=== PATIENT | female | born 2000 | race Caucasian/White ===

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

== ENCOUNTER 2021-03-24 15:42 | Emergency (ER) | payer MEDICAID, SELFPAY ==
[2021-03-24 15:42] VITALS: BP 118/83; PULSE 113; RESP 24; TEMP 37.1; O2SAT 96; BMI 24.3
[2021-03-24 16:16] LABS: Absolute Lymphocyte Count 3.12 X10^3/uL (0.83-4.51); Absolute Neutrophil Count 10.4 X10^3/uL (2.0-7.7); Basophil# 0.05 X10^3/uL; Basophil% 0.3 % (0-1); Eosinophil# 0.01 X10^3/uL; Eosinophils% 0.1 % (0-5); Hemoglobin 15.4 g/dL (12.0-15.0); Lymphocyte # 3.12 X10^3/ul (0.83-4.51); Lymphocyte % 21.4 % (19-41); Mean Corp Hgb Conc 33.5 g/dL (32-36); Mean Corpuscular Hgb 30.7 pg (27.0-32.0); Mean Corpuscular Volume 91.8 fL (81-99); Mean Platelet Vol. 9.6 fl (6.2-12.0); Monocyte# 1.02 X10^3/uL; NRBC Flagged by Analyzer 0 % (0-5); Neutrophil # 10.37 X10^3/uL (2.7-7.7); Neutrophil % 70.9 % (47-70); Platelet Count 278 K/mm3 (150-450); RBC Distribution Width CV 11.7 % (11.6-14.6); RBC Distribution Width SD 39.5 fl (35.1-43.9); Red Blood Count 5.01 M/mm3 (4.2-5.4); White Blood Count 14.6 K/mm3 (4.4-11.0)
[2021-03-24 16:24] LABS: Internal QC Validated? YES +Cl - CLEAR BKGD; Pregnancy, Serum, hCG Quali. NEGATIVE Negative
[2021-03-24 16:28] LABS: Anion Gap 8 (5-15); BUN 12 mg/dL (7-18); BUN/Creat Ratio 12.1 RATIO (10-20); Calcium,Total 9.8 mg/dL (8.5-10.1); Chloride 106 mmol/L (98-107); Creatinine, Serum 0.99 mg/dL (0.55-1.02); EST Glomerular Filtration Rate 77 mL/min (>60); Est Glom Filt Rate - Afr Amer 93 mL/min (>60); Estimated Creatinine Clearance 78.93 ml/min; Glucose 98 mg/dL (74-106); Potassium 3.9 mmol/L (3.5-5.1); Sodium Level 140 mmol/L (136-145)
--- NOTE | 2021-03-24 16:29 | RAD_ITS ---
STUDY: X-RAY CHEST REASON FOR EXAM: Female, 20 years old. COUGH TECHNIQUE: AP COMPARISON: None. FINDINGS: The lungs are clear and expanded. There is no demonstrated pleural abnormality. Normal size heart. Normal mediastinum and hui. Normal visualized pulmonary arteries. Normal visualized aortic arch and descending thoracic aorta. Normal visualized thoracic spine. Normal visualized ribs, clavicles, and shoulders. There is no demonstrated abnormality of the visualized soft tissue structures of the upper abdomen. RAD/Chest 1 View (Portable) IMPRESSION: Nonacute portable x-ray examination of the chest. Electronically Signed: Sen Maria MD ([place]) at 16:59 EDT , Service support ,
[2021-03-24 16:46] LABS: Alcohol, Blood (Medical)-Serum < 3.0 mg/dL
--- NOTE | 2021-03-24 17:42 | EDS_ITS ---
HPI HPI - Psych History of Present Illness Chief Complaint: Suicidal Detail of Chief Complaint: Depression with suicidal thoughts Informant: patient Onset/Context/Timing Onset: Days Context: Gradual Onset Conflict: Family, Work and Financial Timing: Continuous and Waxes and wanes Current Severity: Mild Maximum Severity: Moderate Worsened by: Situational factors and Alcohol intoxication Associated Symptoms Associated Symptoms - Psych: Positive for Depressed, Change in Eating, Change in sleeping and Suicidal Thoughts; Negative for Decreased Interest, Guilt, Hopelessness, Easily distracted, Grandiosity, Flight of Ideas, Increased activity, Pressured Speech, Agitated, Angry, Hostile, Threatening, Confusion, Paranoia, Visual Hallucinations and Auditory Hallucinations Specific plan (suicidal thought): None Narrative Narrative: Patient is a 20-year-old with history of depression. She is on no an tidepressant. She has had suicidal thoughts. She has no plan or future intent. She has had no prior hospitalization. She is on no antidepressants. She does have history of GERD and iron deficiency. Prior similar symptoms: No Recent Illness/Hospitalization: No PFSH PFSH Medical History (Updated 03/24/21 @ 17:[address] Norman Clark MD) Septate uterus Home Medications ferrous sulfate 140 mg PO DAILY 07/09/20 [History Last Taken Unknown] ondansetron 4 mg PO Q8H PRN #7 tab 12/12/20 [Rx Last Taken Unknown] pantoprazole [Protonix] 20 mg PO DAILY #30 tab 12/12/20 [Rx Last Taken Unknown] Allergy/AdvReac Type Severity Reaction Status Date / Time No Known Allergies Allergy Verified 12/12/20 13:01 Surgical History S/P dilation and curettage Social History (Updated 03/24/21 @ 17:[address] Norman Clark MD) household members: none Smoking Status: Never smoker alcohol intake: never substance use type: does not use ROS ROS ED Constitutional Constitutional ED: Denies chills, fever(s), subjective or sweats Eyes Eyes: Denies blurry vision, change in vision or diplopia ENT ENT ED: Denies ear pain, rhinorrhea or sore throat Cardiovascular Cardiovascular: Denies chest pain, palpitations or racing heartbeat Respiratory/Chest Respiratory/Chest: Denies cough, dyspnea, dyspnea on exertion or sputum Gastrointestinal Gastrointestinal: Denies abdominal pain, nausea or vomiting Genitourinary Genitourinary ED: Denies dysuria, hematuria or urinary frequency Musculoskeletal Musculoskeletal: Denies arthralgias, back pain, myalgias or neck pain Integumentary Denies rash Neurologic Neurologic: Denies headache(s), paresthesias or weakness Psychiatric Psychiatric: Reports depression and suicidal thoughts; Denies suicidal ideation Endocrine Endocrinology: Denies polydipsia, polyphagia or polyuria Hematologic/Lymphatic Hematologic/Lymphatic: Denies easy bleeding or easy bruising EXAM Physical Exam Const Vital Signs: 03/24/21 15:42 Temperature 98.7 F Temperature Source Temporal Pulse Rate 113 H Respiratory Rate 24 H Blood Pressure 118/83 H Blood Pressure Mean 94 Pulse Ox 96 Oxygen Delivery Method Room Air Positive well nourished and well developed General Appearance ED: well developed and NAD; Negative for pallor HEENT normocephalic and atraumatic Eyes PERRL and EOMs intact bilaterally General Eye ED: Negative for pale conjunctiva or scleral icterus Neck no lymphadenopathy and supple Resp normal respiratory effort and clear to auscultation bilaterally Cardio S1 normal heart sound, S2 normal heart sound and no murmurs Rate: regular rate Rhythm: regular rhythm GI non-tender and non-distended Auscultation: normoactive bowel sounds Palpation: soft Back/Spine no CVA tenderness Neuro oriented x3 and CN's II-XII intact bilaterally Sensorium / Orientation: alert Psych cooperative, speech normal, denies hallucinations and denies homicidal ideation Appearance: grossly normal, appropriate and well kempt Attitude: calm Activity / Motor Behavior: appropriate eye contact Speech: normal speech Mood & Affect: depressed Thought Content: normal thought content Attention / Concentration: attention grossly intact Memory / Cognition: memory grossly intact Insight: fair Judgement: fair Skin General Skin Exam: Negative for jaundice or pallor Lesions: no lesions Rashes: no rashes MDM MDM MDM Narrative Medical decision making narrative: Protocol was initiated for depression with suicidal thoughts. After discussion with patient and counselor with no future intent no plan she was contracted for safety. Her work-up is unremarkable other than slightly elevated white count which is nonspecific. Alcohol level is nonexistent test is negative. Chest x-ray was obtained per protocol is unremarkable per my read. Lab Data Labs: Laboratory Results - last 24 hr 03/24/21 03/24/2103/24/21 16:07 16:07 16:07 WBC 14.6 H RBC 5.01 Hgb 15.4 H Hct 46.0 MCV 91.8 MCH 30.7 MCHC 33.5 RDW Std Deviation 39.5 RDW Coeff of Abigail 11.7 Plt Count 278 MPV 9.6 Immature Gran % (Auto) 0.300 Neut % (Auto) 70.9 H Lymph % (Auto) 21.4 [place] % (Auto) 7.0 Eos % (Auto) 0.1 Baso % (Auto) 0.3 Absolute Neuts (auto) 10.4 H Absolute Lymphs (auto) 3.12 Nucleated RBC % 0 Sodium 140 Potassium 3.9 Chloride 106 Carbon Dioxide 26.0 Anion Gap 8 BUN 12 Creatinine 0.99 Estim Creat Clear Calc 78.93 Est GFR (MDRD) Af Amer 93 Est GFR (MDRD) Non-Af 77 BUN/Creatinine Ratio 12.1 Glucose 98 Calcium 9.8 Serum , Qual Ethyl Alcohol < 3.0 03/24/21 16:07 WBC RBC Hgb Hct MCV MCH MCHC RDW Std Deviation RDW Coeff of Abigail Plt Count MPV Immature Gran % (Auto) Neut % (Auto) Lymph % (Auto) [place] % (Auto) Eos % (Auto) Baso % (Auto) Absolute Neuts (auto) Absolute Lymphs (auto) Nucleated RBC % Sodium Potassium Chloride Carbon Dioxide Anion Gap BUN Creatinine Estim Creat Clear Calc Est GFR (MDRD) Af Amer Est GFR (MDRD) Non-Af BUN/Creatinine Ratio Glucose Calcium Serum , Qual NEGATIVE Ethyl Alcohol Radiography Diagnostic Testing: Clinical Impression(s) from Imaging Studies Chest X-Ray 03/24/21 16:29 IMPRESSION: Nonacute portable x-ray examination of the chest. Electronically Signed: Sen Maria MD ([place]) at 16:59 EDT , Service support , Discharge Plan Triage Chief Complaint: Suicidal Other Complaint: Cough ED Provider: Norman Clark Dx/Rx/DC Orders Clinical Impression: Depression, Suicidal thoughts Instructions: ED Depression Prescriptions: No Action ferrous sulfate 140 MG tablet extended release 140 mg PO DAILY RF: 0 ondansetron 4 mg tablet,disintegrating 4 mg PO Q8H PRN (Reason: nausea and vomiting) Qty: 7 RF: 0 pantoprazole [Protonix] 20 mg tablet,delayed release (DR/EC) 20 mg PO DAILY Qty: 30 RF: 0 Primary Care Provider: Toby Aceves Referrals: Toby cAeves MD [Primary Care Provider] - As Needed Activity Restrictions/Additional Instructions: If your thoughts are more intrusive or you are concerned you may act on your suicidal thoughts return to the emergency department. Otherwise follow-up as scheduled by the non licensed nuclear equipment operator that you saw through the counseling center. Disposition Disposition: Home, Self Care
[2021-03-24 18:16] VITALS: O2SAT 96
[2021-03-24 18:19] VITALS: BP 118/83; PULSE 113; RESP 24; TEMP 37.1; O2SAT 96
== END 2021-03-24 18:10 | disposition home or self-care (01) ==
PROVIDERS: Emergency Provider Emergency Medicine; PCP Family Medicine
DX: F32.A Depression, unspecified (principal); R45.851 Suicidal ideations; R05.9 Cough, unspecified; Z20.822 Contact with and (suspected) exposure to COVID-19; E61.1 Iron deficiency; K21.9 Gastro-esophageal reflux disease without esophagitis; Z79.899 Other long term (current) drug therapy
CPT/HCPCS: 36415; 71045; 80048; 82077; 84703; 85025; 87426; 93005; 94760; 99284

== ENCOUNTER 2021-09-01 15:36 | Emergency (ER) | payer MEDICAID, SELFPAY ==
[2021-09-01 15:38] VITALS: BP 116/71; PULSE 86; RESP 18; TEMP 36; O2SAT 96; BMI 25.4
--- NOTE | 2021-09-01 15:49 | CT_ITS ---
EXAM: CT ABDOMEN AND PELVIS WITH INTRAVENOUS CONTRAST : 2000 CLINICAL INDICATION: Abdominal pain TECHNIQUE: Helically acquired images were obtained of the abdomen and pelvis with intravenous contrast. This CT exam was performed using one or more of the following dose reduction techniques: automated exposure control, adjustment of the mA and/or kV according to patient size, and/or use of iterative reconstruction technique. This report was created using [employer] report generation technology. CONTRAST: IV 75mL [id number]-370 COMPARISON: None. FINDINGS: LOWER THORAX: Unremarkable. Lung bases are clear. No cardiomegaly. No significant pericardial effusion. ABDOMEN: LIVER: Unremarkable. Homogeneous. No focal mass. GALLBLADDER AND BILE DUCTS: Unremarkable. No calcified gallstones. No gallbladder distention or wall edema. No intra- or extrahepatic biliary ductal dilation. PANCREAS: Unremarkable. No focal cystic or solid mass. SPLEEN: Unremarkable. Normal size without focal cystic or solid mass. ADRENALS: Unremarkable. No nodules. KIDNEYS AND URETERS: Unremarkable. Normal renal size and position. No hydronephrosis. STOMACH AND BOWEL: Unremarkable. No stomach or bowel distention. No focal inflammatory change. PELVIS: APPENDIX: No evidence of acute appendicitis. BLADDER: Unremarkable. REPRODUCTIVE: Unremarkable as visualized. No mass. ABDOMEN and PELVIS: INTRAPERITONEAL SPACE: There is a mild amount of free fluid in the pelvis. No free air. BONES/JOINTS: Unremarkable. No suspicious lytic or blastic abnormality. SOFT TISSUES: Unremarkable. No discrete abdominal or pelvic wall hernia. VASCULATURE: Unremarkable. Abdominal aorta is non-dilated. LYMPH NODES: Unremarkable. No enlarged lymph nodes. CT/Abdomen/Pelvis W IV Cont ONLY IMPRESSION: No acute findings in the abdomen or pelvis. Individualized dose optimization techniques were used for this CT. at 1801 Reported and signed by: Vipul Dawkins MD Electronically Signed: Vipul Dawkins MD at 18:00 EDT ,
--- NOTE | 2021-09-01 16:00 | EDS_ITS ---
HPI <EDI Jack - Last Filed: 09/01/21 18:29> History of Present Illness Chief Complaint: Nausea/Vomiting/Diarrhea Narrative Narrative: 20-year-old female with no significant medical history presents to the emergency department with 3 days of nausea, vomiting, diarrhea, abdominal pain. Patient states got so bad last night that she had to go to the emergency department at [facility], she states she got IV fluids and was sent home with Phenergan. Patient states she continues to have nausea vomiting cannot keep water down. Patient is here for reevaluation. She denies any fevers or chills, patient states she does use marijuana however is very rare. Patient denies any blood in stool, states there is some redness in her vomit. Patient states that she feels dehydrated and is here for reevaluation. PFSH <EDI Jack - Last Filed: 09/01/21 18:29> [facility] Medical History (Updated 09/01/21 @ 18:28 by EDI Jack) Septate uterus Home Medications ferrous sulfate 140 mg PO DAILY 07/09/20 [History Last Taken Unknown] ondansetron 4 mg PO Q8H PRN #7 tab 12/12/20 [Rx Last Taken Unknown] medroxyprogesterone 150 mg/mL intramuscular suspension 150 mg IM [id number] #1 ml 08/28/21 [Rx Last Taken Unknown] metoclopramide HCl [Reglan] 10 mg PO Q6H PRN #10 tab 09/01/21 [Rx Last Taken Unknown] Allergy/AdvReac Type Severity Reaction Status Date / Time No Known Allergies Allergy Verified 09/01/21 15:37 Surgical History S/P dilation and curettage Social History (Updated 08/28/21 @ 14:37 by Carla Clark) household members: family and none current occupational status: employed current occupation: [employer] Smoking Status: Never smoker alcohol intake: never substance use type: does not use what type of physical activity do you participate in: none seatbelt use: always do you feel safe at home: Yes additional social history: single ROS <EDI Jack - Last Filed: 09/01/21 18:29> ROS ED ROS Narrative Constitutional: Negative for fever, chills, weight loss or gain, weakness Eyes: Negative for vision loss, vision change, double vision ENT: Negative for any hearing changes, ringing in the ears, discharge, pain Nose: Negative for any congestion, runny nose, sinus pain, allergies Throat: Negative for any sore throat, swelling, voice changes, Cardiovascular: Negative for any chest pain, tightness, palpitations, racing heartbeat Respiratory: Negative for any cough, sputum production, hemoptysis, shortness of breath, shortness of breath on exertion, Gastrointestinal: Negative for any constipation, blood in stool, blood in vomit. Positive for abdominal pain, nausea and vomiting, diarrhea : Negative for any urinary frequency, incontinence, dysuria, retention, blood in urine Muscle skeletal: Negative for any muscle joint pain, stiffness, myalgias, arthralgias, neck pain, back pain Neurological: Negative for any headache, dizziness, syncope, numbness or tingling Skin: Negative for any rashes, lumps, itching, abrasions, lacerations Psychiatric: Negative for any depression, anxiety, stress, suicidal ideation, homicidal ideation Hematologic: Negative for any easy bruising, excessive bruising, easy bleeding Allergies: Negative for any eczema, hives, rash EXAM <EDI Jack - Last Filed: 09/01/21 18:29> Physical Exam Const Vital Signs: 09/01/21 15:38 09/01/21 18:09 09/01/21 19:05 Temperature 96.8 F L Temperature Source Temporal Pulse Rate 86 74 Respiratory Rate 18 16 17 Blood Pressure 116/71 112/71 Blood Pressure Mean 86 Pulse Ox 96 97 Oxygen Delivery Method Room Air Positive well nourished and well developed General Appearance ED: well developed HEENT Negative for trauma or tenderness Eyes PERRL and EOMs intact bilaterally Neck no lymphadenopathy and supple Chest Wall inspection of chest normal and palpation of chest normal Resp normal respiratory effort and clear to auscultation bilaterally Cardio regular rate, regular rhythm and no murmurs GI non-distended and no masses; Negative for non-tender GI Narrative: Patient is tenderness to lower abdomen Auscultation: normoactive bowel sounds Palpation: soft and tender Back/Spine no CVA tenderness Extremity normal to inspection Neuro oriented x3 and CN's II-XII intact bilaterally Sensorium / Orientation: alert Motor Exam: strength 5/5 throughout Psych mental status grossly normal Skin no rashes or lesions noted <Dr. Joslyn Buenrostro MD - Last Filed: 09/01/21 19:18> Physical Exam Const Vital Signs: 09/01/21 15:38 09/01/21 18:09 09/01/21 19:05 Temperature 96.8 F L Temperature Source Temporal Pulse Rate 86 74 Respiratory Rate 18 16 17 Blood Pressure 116/71 112/71 Blood Pressure Mean 86 Pulse Ox 96 97 Oxygen Delivery Method Room Air [facility] <Franck IvaEDI hudson - Last Filed: 09/01/21 18:29> [facility] Narrative Medical decision making narrative: Patient appears well, patient appears nontoxic, vital signs are stable. Patient presents to the emergency department for ongoing nausea and vomiting and abdominal pain. Patient did receive a full abdominal work-up. Patient CBC was unremarkable, chemistries were unremarkable patient had no anion gap. Patient's urinalysis showed no infection however did have 150 of ketones out this is concerning for dehydration. Patient's urinalysis showed no infection. Patient is not . Patient initially received Zofran, Bentyl as well as 1 L of fluid. Patient did have worsening nausea and vomiting here, patient was then given Reglan 10 mg as well as Benadryl as well as another liter of fluid. Patient is now resting a position of comfort is drinking by mouth fluids. Patient did receive a CT of the abdomen pelvis which showed no acute findings. At this time, the patient will be diagnosed with gastroenteritis, dehydration. There is no indication of any bowel obstruction, diverticulitis, appendicitis. Patient will follow up outpatient and advance her diet as tolerated. Patient stable for discharge Lab Data Attestation: I reviewed the patient's lab results. Labs: Laboratory Results - last 24 hr 09/01/21 09/01/21 09/01/21 16:06 16:06 16:39 WBC 8.1 RBC 4.51 Hgb 13.8 Hct 40.3 MCV 89.4 MCH 30.6 MCHC 34.2 RDW Std Deviation 37.9 RDW Coeff of Abigail 11.8 Plt Count 246 MPV 10.1 Immature Gran % (Auto) 0.400 Neut % (Auto) 65.2 Lymph % (Auto) 25.7 [place] % (Auto) 8.3 Eos % (Auto) 0.0 Baso % (Auto) 0.4 Absolute Neuts (auto) 5.3 Absolute Lymphs (auto) 2.07 Nucleated RBC % 0 Sodium 137 Potassium 3.8 Chloride 106 Carbon Dioxide 24.0 Anion Gap 7 BUN 14 Creatinine 0.79 Estim Creat Clear Calc 94.75 Est GFR (MDRD) Af Amer 120 Est GFR (MDRD) Non-Af 99 BUN/Creatinine Ratio 17.7 Glucose 95 Calcium 9.0 Total Bilirubin 0.70 AST 11 L ALT 16 Alkaline Phosphatase 58 Total Protein 7.5 Albumin 3.7 Globulin 3.8 Albumin/Globulin Ratio 1.0 Lipase 57 L Serum , Qual NEGATIVE Urine Color Urine Clarity Urine pH Ur Specific [place] Urine Protein Urine Glucose (UA) Urine Ketones Urine Occult Blood Urine Nitrite Urine Bilirubin Urine Urobilinogen Ur Leukocyte Esterase Urine RBC Urine WBC Ur Squamous Epith Cells Urine Bacteria Urine Mucus Urine Test 09/01/21 17:38 WBC RBC Hgb Hct MCV MCH MCHC RDW Std Deviation RDW Coeff of Abigail Plt Count MPV Immature Gran % (Auto) Neut % (Auto) Lymph % (Auto) [place] % (Auto) Eos % (Auto) Baso % (Auto) Absolute Neuts (auto) Absolute Lymphs (auto) Nucleated RBC % Sodium Potassium Chloride Carbon Dioxide Anion Gap BUN Creatinine Estim Creat Clear Calc Est GFR (MDRD) Af Amer Est GFR (MDRD) Non-Af BUN/Creatinine Ratio Glucose Calcium Total Bilirubin AST ALT Alkaline Phosphatase Total Protein Albumin Globulin Albumin/Globulin Ratio Lipase Serum , Qual Urine Color Yellow Urine Clarity Clear Urine pH 6.5 Ur Specific [place] 1.015 Urine Protein 30 H Urine Glucose (UA) Normal Urine Ketones 150 A* Urine Occult Blood Negative Urine Nitrite Negative Urine Bilirubin Negative Urine Urobilinogen 1 H Ur Leukocyte Esterase 25 H Urine RBC 0-5 SEEN Urine WBC 0-5 SEEN Ur Squamous Epith Cells 0-5 SEEN Urine Bacteria 0 SEEN Urine Mucus 1+ Urine Test Cancelled Radiography Diagnostic Testing: Clinical Impression(s) from Imaging Studies Abdomen/Pelvis CT 09/01/21 15:49 IMPRESSION: No acute findings in the abdomen or pelvis. Individualized dose optimization techniques were used for this CT. at 1801 Reported and signed by: Vipul Dawkins MD Electronically Signed: Vipul Dawkins MD at 18:00 EDT , <Dr. Joslyn Buenrostro MD - Last Filed: 09/01/21 19:18> [facility] Lab Data Labs: Laboratory Results - last 24 hr 09/01/21 09/01/21 09/01/21 16:06 16:06 16:39 WBC 8.1 RBC 4.51 Hgb 13.8 Hct 40.3 MCV 89.4 MCH 30.6 MCHC 34.2 RDW Std Deviation 37.9 RDW Coeff of Abigail 11.8 Plt Count 246 MPV 10.1 Immature Gran % (Auto) 0.400 Neut % (Auto) 65.2 Lymph % (Auto) 25.7 [place] % (Auto) 8.3 Eos % (Auto) 0.0 Baso % (Auto) 0.4 Absolute Neuts (auto) 5.3 Absolute Lymphs (auto) 2.07 Nucleated RBC % 0 Sodium 137 Potassium 3.8 Chloride 106 Carbon Dioxide 24.0 Anion Gap 7 BUN 14 Creatinine 0.79 Estim Creat Clear Calc 94.75 Est GFR (MDRD) Af Amer 120 Est GFR (MDRD) Non-Af 99 BUN/Creatinine Ratio 17.7 Glucose 95 Calcium 9.0 Total Bilirubin 0.70 AST 11 L ALT 16 Alkaline Phosphatase 58 Total Protein 7.5 Albumin 3.7 Globulin 3.8 Albumin/Globulin Ratio 1.0 Lipase 57 L Serum , Qual NEGATIVE Urine Color Urine Clarity Urine pH Ur Specific [place] Urine Protein Urine Glucose (UA) Urine Ketones Urine Occult Blood Urine Nitrite Urine Bilirubin Urine Urobilinogen Ur Leukocyte Esterase Urine RBC Urine WBC Ur Squamous Epith Cells Urine Bacteria Urine Mucus Urine Test 09/01/21 17:38 WBC RBC Hgb Hct MCV MCH MCHC RDW Std Deviation RDW Coeff of Abigail Plt Count MPV Immature Gran % (Auto) Neut % (Auto) Lymph % (Auto) [place] % (Auto) Eos % (Auto) Baso % (Auto) Absolute Neuts (auto) Absolute Lymphs (auto) Nucleated RBC % Sodium Potassium Chloride Carbon Dioxide Anion Gap BUN Creatinine Estim Creat Clear Calc Est GFR (MDRD) Af Amer Est GFR (MDRD) Non-Af BUN/Creatinine Ratio Glucose Calcium Total Bilirubin AST ALT Alkaline Phosphatase Total Protein Albumin Globulin Albumin/Globulin Ratio Lipase Serum , Qual Urine Color Yellow Urine Clarity Clear Urine pH 6.5 Ur Specific [place] 1.015 Urine Protein 30 H Urine Glucose (UA) Normal Urine Ketones 150 A* Urine Occult Blood Negative Urine Nitrite Negative Urine Bilirubin Negative Urine Urobilinogen 1 H Ur Leukocyte Esterase 25 H Urine RBC 0-5 SEEN Urine WBC 0-5 SEEN Ur Squamous Epith Cells 0-5 SEEN Urine Bacteria 0 SEEN Urine Mucus 1+ Urine Test Cancelled Radiography Diagnostic Testing: Clinical Impression(s) from Imaging Studies Abdomen/Pelvis CT 09/01/21 15:49 IMPRESSION: No acute findings in the abdomen or pelvis. Individualized dose optimization techniques were used for this CT. at 1801 Reported and signed by: Vipul Dawkins MD Electronically Signed: Vipul Dawkins MD at 18:00 EDT , Treatment and Re-Evaluation Narrative: Patient seen and evaluated with WENDY. I personally interviewed and examined the patient. I was involved in all aspects of patient's orders, interpretation of results, and treatment. Patient presents secondary to couple day history of nausea, vomiting, diarrhea with abdominal pain. She points to both the epigastrium as well as suprapubic area describing her area of pain. She was reportedly seen at [facility] last night and discharged with Phenergan. She also has Zofran at home. She states in spite of this medication she was unable to keep anything down today. Patient lying in bed no acute distress. She is nontoxic-appearing. Head and neck examination unremarkable. Heart is regular rate and rhythm. Lung sounds are clear. Abdomen is soft with no significant tenderness on palpation. No guarding or rebound. Patient given Bentyl, Zofran, Toradol, IV fluids. Lab work, urinalysis, CT flank obtained. Lab work is unremarkable and test is negative. Urinalysis reveals no acute infection. She does have 150 ketones. Patient had some dry heaves following initial round of medication. She was given Reglan and Benadryl. She will be given a total of 2 L of IV fluid and discharged home with prescription for omeprazole and Reglan. Return instructions provided. Discharge Plan Triage Chief Complaint: Nausea/Vomiting/Diarrhea ED Midlevel Provider: Franck Plasencia ED Provider: Joslyn Buenrostro Dx/Rx/DC Orders Clinical Impression: Gastroenteritis, Acute dehydration Instructions: ED Dehydration (Adult), ED Gastritis (Adult) Prescriptions: New metoclopramide HCl [Reglan] 10 mg tablet 10 mg PO Q6H PRN (Reason: nausea and vomiting) Qty: 10 RF: 0 No Action medroxyprogesterone [Depo-Provera] 150 mg/mL suspension 150 mg IM [id number] Qty: 1 RF: 1 ferrous sulfate 140 MG tablet extended release 140 mg PO DAILY RF: 0 ondansetron 4 mg tablet,disintegrating 4 mg PO Q8H PRN (Reason: nausea and vomiting) Qty: 7 RF: 0 Primary Care Provider: Toby Aceves Referrals: Toby Aceves MD [Primary Care Provider] - Activity Restrictions/Additional Instructions: Please advance her diet as tolerated, clear liquids then solid foods. Please use Reglan as needed. Print Language: Syriac Disposition Disposition: Home, Self Care Discharge Date/Time: 09/01/21 19:12
[2021-09-01] MEDS: Ondansetron 4 MG/2 ML Vial IV (16:03)
[2021-09-01] MEDS: Ketorolac 15 MG/ML Vial IV (16:03)
[2021-09-01] MEDS: 0.9% Normal Saline 1,000 ML 1000 ML IV (16:03)
[2021-09-01] MEDS: Dicyclomine 20 MG/2 ML Vial IM (16:04)
[2021-09-01 16:13] LABS: Absolute Lymphocyte Count 2.07 X10^3/uL (0.83-4.51); Absolute Neutrophil Count 5.3 X10^3/uL (2.0-7.7); Basophil# 0.03 X10^3/uL; Basophil% 0.4 % (0-1); Hematocrit 40.3 % (37-47); Hemoglobin 13.8 g/dL (12.0-15.0); Lymphocyte # 2.07 X10^3/ul (0.83-4.51); Lymphocyte % 25.7 % (19-41); Mean Corp Hgb Conc 34.2 g/dL (32-36); Mean Corpuscular Hgb 30.6 pg (27.0-32.0); Mean Corpuscular Volume 89.4 fL (81-99); Mean Platelet Vol. 10.1 fl (6.2-12.0); Monocyte# 0.67 X10^3/uL; Monocyte% 8.3 % (0-10); NRBC Flagged by Analyzer 0 % (0-5); Neutrophil # 5.25 X10^3/uL (2.7-7.7); Neutrophil % 65.2 % (47-70); Platelet Count 246 K/mm3 (150-450); RBC Distribution Width CV 11.8 % (11.6-14.6); RBC Distribution Width SD 37.9 fl (35.1-43.9); Red Blood Count 4.51 M/mm3 (4.2-5.4); White Blood Count 8.1 K/mm3 (4.4-11.0)
[2021-09-01 16:29] LABS: AST(SGOT) 11 U/L (15-37); Alanine Aminotransfer ALT/SGPT 16 U/L (13-56); Albumin, Serum 3.7 g/dL (3.2-5.0); Alkaline Phosphatase 58 U/L (45-117); Anion Gap 7 (5-15); BUN 14 mg/dL (7-18); BUN/Creat Ratio 17.7 RATIO (10-20); Chloride 106 mmol/L (98-107); Creatinine, Serum 0.79 mg/dL (0.55-1.02); EST Glomerular Filtration Rate 99 mL/min (>60); Est Glom Filt Rate - Afr Amer 120 mL/min (>60); Estimated Creatinine Clearance 94.75 ml/min; Globulin 3.8 g/dL (2.2-4.2); Glucose 95 mg/dL (74-106); Lipase 57 U/L (73-393); Potassium 3.8 mmol/L (3.5-5.1); Protein, Total 7.5 g/dL (6.4-8.2); Sodium Level 137 mmol/L (136-145)
[2021-09-01 17:01] LABS: Internal QC Validated? YES +Cl - CLEAR BKGD; Pregnancy, Serum, hCG Quali. NEGATIVE Negative
[2021-09-01] MEDS: DiphenhydrAMINE 50 MG/ML Syringe 25 MG IV (17:23)
[2021-09-01] MEDS: Metoclopramide 10 MG/2 ML Vial IV (17:23)
[2021-09-01 17:43] LABS: Bacteria 0 SEEN /hpf (None Seen)
[2021-09-01 17:47] LABS: Color, Urine Yellow (Yellow); Glucose, Dipstick Normal (Normal); Leukocyte Esterase-Dipstick 25 /ul (Negative); Nitrite-Dipstick Negative (Negative); Occult Blood-Urine Negative /ul (Negative); Protein-Dipstick 30 mg/dl (Negative); Specific Gravity, Urine 1.015 (1.002-1.030); Urine Bilirubin Dipstick Negative (Negative); Urine Clarity Clear (Clear); Urine Urobilinogen 1 mg/dl (Normal); Urine pH 6.5 (5.0 - 8.0)
[2021-09-01 17:51] LABS: Ketone-Dipstick 150 mg/dl (Negative)
[2021-09-01 18:04] LABS: Red Blood Cells-Urine 0-5 SEEN /hpf (0-5); White Blood Cells 0-5 SEEN /hpf (0-5)
[2021-09-01 18:05] LABS: Mucous, Urine 1+ /hpf (<or=2+); Squamous Epithelial Cells - UA 0-5 SEEN /hpf (5-10)
[2021-09-01 18:09] VITALS: RESP 16
[2021-09-01] MEDS: 0.9% Normal Saline 1,000 ML 999 ML IV (18:11)
[2021-09-01 19:05] VITALS: BP 112/71; PULSE 74; RESP 17; O2SAT 97
== END 2021-09-01 19:12 | disposition home or self-care (01) ==
PROVIDERS: Nurse Practitioner; Emergency Provider Emergency Medicine; PCP Family Medicine; Visit Provider Emergency Medicine
DX: K52.9 Noninfective gastroenteritis and colitis, unspecified (principal); E86.0 Dehydration
CPT/HCPCS: 74177; 80053; 81001; 83690; 84703; 85025; 96361; 96374; 96375; 99283; J7030; Q9967; A4216; J2405

== ENCOUNTER 2021-09-02 09:23 | Emergency (ER) | payer MEDICAID, SELFPAY ==
[2021-09-02 09:24] VITALS: BP 111/67; PULSE 63; RESP 18; TEMP 36.2; O2SAT 100; BMI 25.7
--- NOTE | 2021-09-02 09:45 | EDS_ITS ---
HPI HPI - GI History of Present Illness Chief Complaint: Nausea/Vomiting/Diarrhea Informant: patient Abdominal Pain/Flank Pain Onset: Days Context: Gradual Onset Timing: Continuous Quality: Aching Location: Diffuse Current Severity: Mild Maximum Severity: Mild Worsened by: Nothing Relieved by: Nothing Nausea/Vomiting/Emesis GI Symptom: Positive for Nausea and Vomiting Onset: Days Severity: Moderate Diarrhea/Melena/Hematochezia GI Symptom: Positive for Diarrhea; Negative for Melena and Hematochezia Onset: Days Stool Quality: Positive for Watery Severity: Mild Associated Symptoms Associated Symptoms: Negative for Dysuria, Frequency, Hematuria and Urgency Narrative Narrative: 20-year-old female no seen past medical history. No prior abdominal surgeries. Presents with a 3-day history of nausea vomiting and diarrhea. She denies any fever. No dysuria. She is actually seen in the emergency department in the last 48 hours. Had a negative work-up at that time including CBC, chemistry, liver enzymes and lipase. Also negative UA and test. States she is having continued nausea vomiting and diarrhea. Prior similar symptoms: Yes Recent Illness/Hospitalization: No PFSH PFSH Medical History (Updated 09/02/21 @ 10:[address] Francisco Arora MD) Septate uterus Home Medications ferrous sulfate 140 mg PO DAILY 07/09/20 [History Last Taken Unknown] ondansetron 4 mg PO Q8H PRN #7 tab 12/12/20 [Rx Last Taken Unknown] medroxyprogesterone 150 mg/mL intramuscular suspension 150 mg IM [id number] #1 ml 08/28/21 [Rx Last Taken Unknown] metoclopramide HCl [Reglan] 10 mg PO Q6H PRN #10 tab 09/01/21 [Rx Last Taken Unknown] Allergy/AdvReac Type Severity Reaction Status Date / Time No Known Allergies Allergy Verified 09/01/21 15:37 Surgical History S/P dilation and curettage Social History household members: family and none current occupational status: employed current occupation: [employer] Smoking Status: Never smoker alcohol intake: never substance use type: does not use what type of physical activity do you participate in: none seatbelt use: always do you feel safe at home: Yes additional social history: single ROS ROS ED ROS Narrative Nausea, vomiting, diarrhea and abdominal pain. Review of Systems ROS Unobtainable: Denies due to encephalopathy Constitutional Constitutional ED: Denies fever(s) ENT ENT ED: Denies ear pain Cardiovascular Cardiovascular: Denies chest pain Respiratory/Chest Respiratory/Chest: Denies cough or dyspnea Gastrointestinal Gastrointestinal: Reports abdominal pain, diarrhea, nausea and vomiting; Denies constipation or melena Genitourinary Genitourinary ED: Denies dysuria or hematuria Musculoskeletal Musculoskeletal: Denies myalgias Integumentary Denies rash Neurologic Neurologic: Denies headache(s) Psychiatric Psychiatric: Denies depression Endocrine Endocrinology: Denies polyuria Hematologic/Lymphatic Hematologic/Lymphatic: Denies easy bruising Allergic/Immunologic Allergic/Immunologic ED: Denies urticaria EXAM Physical Exam Narrative Exam Narrative: Well-appearing 20-year-old female. Vital signs stable afebrile. Blood pressure 111/67. Pulse 63. She does not look septic or toxic. She does not look dehydrated. H EENT exam unremarkable. Moist use membranes. Lungs clear to auscultation. Heart regular rhythm rate about 60 no murmur. Abdomen soft nondistended normal bowel sounds no peritoneal signs. Complains of tenderness but she has a benign abdomen. It is not localizing is diffuse. There is no hernia or mass. There is no obstruction. Moving all 4 extremities. Nontender no edema. Neurologic exam normal. Const Vital Signs: 09/02/21 09:24 Temperature 97.2 F L Temperature Source Temporal Pulse Rate 63 Respiratory Rate 18 Blood Pressure 111/67 Blood Pressure Mean 81 Pulse Ox 100 Oxygen Delivery Method Room Air Positive well nourished and well developed; Negative for obese, cachectic or contractures General Appearance ED: well developed; Negative for cachectic, contractures or pallor Nutritional Appearance: Negative for cachectic or obese HEENT Reports moist mucous membranes normocephalic; Negative for atraumatic or trauma Eyes PERRL and EOMs intact bilaterally Neck no lymphadenopathy, supple and no JVD General: Negative for tenderness Resp normal respiratory effort and clear to auscultation bilaterally Auscultation: Negative for rales, rhonchi or wheezes Cardio regular rate, regular rhythm, S1 normal heart sound, S2 normal heart sound and no murmurs GI non-distended and no masses; Negative for non-tender Inspection: Negative for abdominal distention Auscultation: normoactive bowel sounds; Negative for hyperactive bowel sounds or hypoactive bowel sounds Palpation: soft and tender; Negative for guarding, rigid, hepatomegaly, splenomegaly, hernia, mass, pulsatile mass or rebound tenderness present Back/Spine no CVA tenderness General Back: Negative for CVA tenderness Cervical Spine: Negative for cervical spine tenderness Thoracic Spine / Upper Back: Negative for thoracic spinal tenderness Extremity full ROM General Extremety ED: Negative for edema or tenderness General Extremity: Negative for edema Neuro moves all extremities Sensorium / Orientation: alert, oriented to person, oriented to place and oriented to time; Negative for orientation impaired, confused, lethargic or stuporous Motor Exam: strength 5/5 throughout Psych mental status grossly normal and thought process normal Skin no wounds General Skin Exam: Negative for jaundice or pallor Lesions: no lesions Rashes: no rashes MDM MDM MDM Narrative Medical decision making narrative: 20-year-old female history and exam are consistent with a viral gastroenteritis. She had a significant work-up in his emergency department in the last 24 hours. Test were unremarkable at that time. She will be treated with IV fluids and Zofran and reassess. Repeat exam at 11 AM patient is doing well. She was given a Sprite to drink has been able to keep that down. Abdomen is benign. Again rechecked at 11:53 AM and she is doing well she will be discharged to home. She is a prescription for nausea medication which she received on a prior emergency department visit. Discharge Plan Triage Chief Complaint: Nausea/Vomiting/Diarrhea ED Provider: Francisco Arora Dx/Rx/DC Orders Clinical Impression: Gastroenteritis Instructions: ED Gastroenteritis, Viral (Adult) Prescriptions: No Action medroxyprogesterone [Depo-Provera] 150 mg/mL suspension 150 mg IM [id number] Qty: 1 RF: 1 ferrous sulfate 140 MG tablet extended release 140 mg PO DAILY RF: 0 ondansetron 4 mg tablet,disintegrating 4 mg PO Q8H PRN (Reason: nausea and vomiting) Qty: 7 RF: 0 metoclopramide HCl [Reglan] 10 mg tablet 10 mg PO Q6H PRN (Reason: nausea and vomiting) Qty: 10 RF: 0 Primary Care Provider: Toby Aceves Referrals: Toby Aceves MD [Primary Care Provider] - 3-5 Days if not improving Activity Restrictions/Additional Instructions: Plenty of fluids and rest. [place] diet increase slowly as tolerated. Start with liquids then p.o. then soups and increase from there. Zofran as needed for nausea which you may let dissolve under your tongue or swallow it to prevent you from vomiting. Follow-up with your doctor if not improving. Disposition Disposition: Home, Self Care
[2021-09-02] MEDS: Ketorolac 30 MG/ML Syringe IV (10:11)
[2021-09-02] MEDS: 0.9% Normal Saline 1,000 ML 1000 ML IV (10:11)
[2021-09-02] MEDS: Ondansetron 4 MG/2 ML Vial IV (10:11)
[2021-09-02 12:00] VITALS: BP 124/63; PULSE 59; RESP 16; O2SAT 98
== END 2021-09-02 12:01 | disposition home or self-care (01) ==
PROVIDERS: Emergency Provider Emergency Medicine; PCP Family Medicine; Visit Provider Emergency Medicine
DX: K52.9 Noninfective gastroenteritis and colitis, unspecified (principal); Z79.899 Other long term (current) drug therapy
CPT/HCPCS: 96361; 96374; 96375; 99283; J7030; A4216; J2405

== ENCOUNTER 2021-09-05 11:56 | Emergency (ER) | payer MEDICAID, SELFPAY ==
[2021-09-05 11:56] VITALS: BP 107/77; BP 110/66; PULSE 63; PULSE 76; RESP 14; RESP 16; TEMP 36.9; TEMP 37.1; O2SAT 97; O2SAT 99; BMI 24.0
--- NOTE | 2021-09-05 12:19 | EDS_ITS ---
HPI HPI - GI History of Present Illness Chief Complaint: Nausea/Vomiting Informant: patient and parent Abdominal Pain/Flank Pain Onset: Weeks Context: Gradual Onset Timing: Intermittent Nausea/Vomiting/Emesis GI Symptom: Positive for Nausea and Vomiting Severity: Moderate Diarrhea/Melena/Hematochezia GI Symptom: Negative for Diarrhea, Melena and Hematochezia Associated Symptoms Associated Symptoms: Negative for Dysuria, Frequency and Hematuria Narrative Narrative: 20-year-old female no significant past medical history. Only surgery was a D&C. She has had intermittent nausea vomiting for last 2 weeks. She has had multiple ER evaluations. She had negative labs including a CBC, CMP, lipase, urinalysis and test. She has both Phenergan and Zofran at home. States she has recurrent nausea and vomiting. She does admit to using cannabis recreationally. But says she has not used it for last couple weeks. Prior similar symptoms: Yes Recent Illness/Hospitalization: No PFSH PFSH Medical History (Updated 09/05/21 @ 12:[address] Francisco Arora MD) Septate uterus Home Medications ferrous sulfate 140 mg PO DAILY 07/09/20 [History Last Taken Unknown] ondansetron 4 mg PO Q8H PRN #7 tab 12/12/20 [Rx Last Taken Unknown] medroxyprogesterone 150 mg/mL intramuscular suspension 150 mg IM [id number] #1 ml 08/28/21 [Rx Last Taken Unknown] metoclopramide HCl [Reglan] 10 mg PO Q6H PRN #10 tab 09/01/21 [Rx Last Taken Unknown] Allergy/AdvReac Type Severity Reaction Status Date / Time No Known Allergies Allergy Verified 09/05/21 11:58 Family History no significant family his Surgical History S/P dilation and curettage Social History household members: family and none current occupational status: employed current occupation: [employer] Smoking Status: Never smoker alcohol intake: never substance use type: does not use and marijuana what type of physical activity do you participate in: none seatbelt use: always do you feel safe at home: Yes additional social history: single ROS ROS ED ROS Narrative Nausea and vomiting. Review of Systems ROS Unobtainable: Denies due to encephalopathy Constitutional Constitutional ED: Denies fever(s) ENT ENT ED: Denies ear pain Cardiovascular Cardiovascular: Denies chest pain Respiratory/Chest Respiratory/Chest: Denies dyspnea Gastrointestinal Gastrointestinal: Reports abdominal pain, nausea and vomiting; Denies constipation or melena Genitourinary Genitourinary ED: Denies dysuria Musculoskeletal Musculoskeletal: Denies myalgias Integumentary Denies rash Neurologic Neurologic: Denies headache(s) Psychiatric Psychiatric: Denies depression Endocrine Endocrinology: Denies polyuria Hematologic/Lymphatic Hematologic/Lymphatic: Denies easy bruising Allergic/Immunologic Allergic/Immunologic ED: Denies urticaria EXAM Physical Exam Narrative Exam Narrative: -year-old female no acute distress. Vital signs stable afebrile. Initial blood pressure 107/77. Her pulse rate 76. She does not look septic or toxic. She is in no distress. Mom is at bedside. H EENT exam unremarkable. Moist use membranes. Neck nontender no lymphadenopathy. Lungs clear to auscultation. Heart regular rate and rhythm. Abdomen soft nondistended normal bowel sounds no peritoneal signs. No right upper or right lower quadrant tenderness. No hernia or mass no obstruction. Moving all 4 extremities. No edema. Neurologically she is awake and alert with no focal motor deficits. I did examine the patient on at least one other visit and there is no change. Const Vital Signs: 09/05/21 11:56 Temperature 98.4 F Temperature Source Temporal Pulse Rate 76 Respiratory Rate 16 Blood Pressure 107/77 Blood Pressure Mean 87 Pulse Ox 99 Oxygen Delivery Method Room Air Positive well nourished and well developed; Negative for obese, cachectic, contractures or unkempt General Appearance ED: well developed and NAD; Negative for unkempt, cachectic, contractures or pallor Nutritional Appearance: Negative for cachectic or obese HEENT Reports moist mucous membranes normocephalic and atraumatic Eyes PERRL and EOMs intact bilaterally General Eye ED: Negative for pale conjunctiva or scleral icterus Neck no lymphadenopathy, supple and no JVD General: Negative for tenderness Resp normal respiratory effort and clear to auscultation bilaterally Auscultation: Negative for rales, rhonchi or wheezes Cardio regular rate, regular rhythm, S1 normal heart sound, S2 normal heart sound and no murmurs GI non-tender, non-distended and no masses Inspection: Negative for abdominal distention Auscultation: normoactive bowel sounds Palpation: soft; Negative for tender, guarding, rigid or rebound tenderness present Back/Spine no CVA tenderness General Back: Negative for CVA tenderness Cervical Spine: Negative for cervical spine tenderness Thoracic Spine / Upper Back: Negative for thoracic spinal tenderness Extremity full ROM General Extremety ED: Negative for edema or tenderness General Extremity: Negative for edema Neuro CN's II-XII intact bilaterally and moves all extremities Sensorium / Orientation: alert, oriented to person, oriented to place and oriented to time; Negative for orientation impaired, confused, lethargic or stuporous Motor Exam: strength 5/5 throughout Psych mental status grossly normal and thought process normal Appearance: Negative for unkempt Skin no wounds General Skin Exam: Negative for jaundice or pallor Lesions: no lesions Rashes: no rashes MDM MDM MDM Narrative Medical decision making narrative: Patient with intermittent nausea and vomiting for last 2 weeks. Her exam is benign. Her prior work-ups been negative. She needs no imaging. I discussed both with the patient and her mom.. There is no other test to really do at this time. I did offer to start an IV and give the medications that way. She has 2 different nausea medications at home. Mom messages today. Injection of nausea medication and she will follow up with a primary care physician. We did discuss the possibility of this being related to recreational marijuana use also. Discharge Plan Triage Chief Complaint: Nausea/Vomiting ED Provider: Francisco Arora Dx/Rx/DC Orders Clinical Impression: Nausea & vomiting Instructions: ED Vomiting (Adult) Prescriptions: No Action medroxyprogesterone [Depo-Provera] 150 mg/mL suspension 150 mg IM [id number] Qty: 1 RF: 1 ferrous sulfate 140 MG tablet extended release 140 mg PO DAILY RF: 0 ondansetron 4 mg tablet,disintegrating 4 mg PO Q8H PRN (Reason: nausea and vomiting) Qty: 7 RF: 0 metoclopramide HCl [Reglan] 10 mg tablet 10 mg PO Q6H PRN (Reason: nausea and vomiting) Qty: 10 RF: 0 Primary Care Provider: Toby Aceves Referrals: Toby Aceves MD [Primary Care Provider] - As soon as possible Activity Restrictions/Additional Instructions: Plenty of fluids and rest. Use your home nausea medications both Zofran and/or the Phenergan. Call and follow-up with your primary care physician. Disposition Disposition: Home, Self Care
[2021-09-05] MEDS: proCHLORPERazine 10 MG/2 ML Vial IM (12:53)
[2021-09-05 13:26] VITALS: BP 100/51; PULSE 65; O2SAT 99
[2021-09-05 14:27] VITALS: BP 124/69; PULSE 72; RESP 15; O2SAT 98
== END 2021-09-05 14:29 | disposition home or self-care (01) ==
LOC: ED 12:27
PROVIDERS: Emergency Provider Emergency Medicine; PCP Family Medicine; Visit Provider Emergency Medicine
DX: R11.2 Nausea with vomiting, unspecified (principal); R10.9 Unspecified abdominal pain; Z79.899 Other long term (current) drug therapy
CPT/HCPCS: 96372; 99283

== ENCOUNTER 2021-09-07 14:31 | Outpatient (CLI) | payer MEDICAID, SELFPAY ==
[2021-09-07 15:24] LABS: Internal QC Validated? YES +Cl - CLEAR BKGD; Pregnancy, Serum, hCG Quali. NEGATIVE Negative
== END 2021-09-07 23:59 | disposition home or self-care (01) ==
PROVIDERS: PCP Family Medicine; Referring Provider Obstetrics & Gynecology; Visit Provider Obstetrics & Gynecology
DX: Z30.9 Encounter for contraceptive management, unspecified (principal)
CPT/HCPCS: 36415; 84703

== ENCOUNTER 2021-11-21 01:24 | Emergency (ER) | payer MEDICAID, SELFPAY ==
[2021-11-21 01:25] VITALS: BP 124/90; PULSE 60; RESP 18; TEMP 36.4; O2SAT 100; BMI 24.0
--- NOTE | 2021-11-21 01:41 | EX.ED.DYSGE1 ---
HPI History of Present Illness Chief Complaint: Nausea/Vomiting Informant: patient Narrative Narrative: Patient's been having nausea vomiting and some diarrhea that started about 4 days ago. She states the diarrhea is now better. No blood in the stool. She states she has not been able to get anything at all to eat or drink. She has vomited a little bit of blood once or twice but not routinely. She states her stomach is sore all over but no one area is tender or painful. She has had many episodes of this in the past with no known diagnosis. She has been seen in the emergency department for some of these episodes. She does have a history of marijuana use. It is not known if this is the origin of her symptoms. She has not had fevers or chills. She does not know anyone who is sick. No travel. She is on no medicines. No intra-abdominal surgeries other than D&C. No known COVID exposure. No cough. No myalgias. Nothing really makes her symptoms better. Anything she tries to eat or drink makes them worse. Patient also really wants the blood pressure cuff off of her arm. She states it just bothers her. [facility] Medical History (Updated 11/21/21 @ 05:[address] Tristin Valle MD) Septate uterus Home Medications ondansetron 4 mg disintegrating tablet 4 mg PO Q8H PRN nausea and vomiting #10 tabs 11/21/21 [Rx Last Taken Unknown] promethazine 25 mg rectal suppository (Promethegan) 25 mg RECTAL Q6H PRN PRN Nausea ##6 11/21/21 [Rx Last Taken Unknown] Allergy/AdvReac Type Severity Reaction Status Date / Time No Known Allergies Allergy Verified 11/21/21 01:28 Surgical History S/P dilation and curettage Social History household members: family and none current occupational status: employed current occupation: [employer] Smoking Status: Never smoker alcohol intake: never substance use type: does not use and marijuana what type of physical activity do you participate in: none seatbelt use: always do you feel safe at home: Yes additional social history: single ROS ROS ED Constitutional Constitutional ED: Denies chills or fever(s) Eyes Eyes: Denies change in vision ENT ENT ED: Denies rhinorrhea or sore throat Cardiovascular Cardiovascular: Denies chest pain or palpitations Respiratory/Chest Respiratory/Chest: Denies cough or dyspnea Gastrointestinal Gastrointestinal: Reports abdominal pain, diarrhea, nausea and vomiting; Denies constipation or melena Genitourinary Genitourinary ED: Reports other Details: No change in urine output. ; Denies dysuria or hematuria Musculoskeletal Musculoskeletal: Denies arthralgias Integumentary Denies Abrasions Neurologic Neurologic: Denies headache(s) Endocrine Endocrinology: Denies cold intolerance or heat intolerance Allergic/Immunologic Allergic/Immunologic ED: Denies mouth swelling EXAM Physical Exam Const Vital Signs: 11/21/21 01:25 11/21/21 04:52 11/21/21 06:00 Temperature 97.6 F L Temperature Source Temporal Pulse Rate 60 74 70 Respiratory Rate 18 17 Blood Pressure 124/90 H 132/74 H 122/74 H Blood Pressure Mean 101 93 90 Pulse Ox 100 98 99 Oxygen Delivery Method Room Air Room Air Room Air Positive well nourished and well developed General Appearance ED: well developed and NAD; Negative for cyanotic HEENT Reports moist mucous membranes HEENT Narrative: Mucous membranes are still surprisingly moist considering her history. Eyes PERRL and EOMs intact bilaterally General Eye ED: Negative for scleral icterus Neck no lymphadenopathy Resp normal respiratory effort and clear to auscultation bilaterally Cardio regular rate Rate: other Other Details: Despite her history, her heart rate is about 65 and very normal and regular. ; Negative for tachycardic GI normal to inspection, nondistended, normoactive bowel sounds, non-tender and non-distended GI Narrative: Bowel sounds sound normal. They are not increased or decreased. Abdomen is overall thin and benign. Back/Spine no CVA tenderness Extremity normal to inspection General Extremety ED: Negative for edema or tenderness General Extremity: Negative for edema Neuro oriented x3 Psych mental status grossly normal Skin no rashes or lesions noted MDM MDM MDM Narrative Medical decision making narrative: GlobinPatient's blood work showed slight rise of her white count. She has had this before. A little bit high. Electrolytes show no marked abnormalities. Minimal abnormalities of sodium and potassium. Creatinine is barely above normal. BUN to creatinine ratio is less than 20. Liver function test are normal. Lipase is normal. is negative. Patient was given IV fluids here. She has gone to the restroom multiple times. But each time she states she cannot go. There is some concern if she may be going in flushing because there is flushing that is heard. But we cannot verify this. Patient did drink 2 glasses of water. She did well. She ate crackers. She stated she threw those up but she went to the bathroom again to do that and we could not verify it. Patient is very nontoxic in appearance. Her heart rate is normal. Her mucous membranes are moist. Her abdomen is benign. I will get her some more meds and watch her here longer. Patient did have a CAT scan back in August of this year. I really do not want to repeat this as she has a long history of abdominal pain nausea and vomiting with mostly nausea vomiting being the issue. We will try to control her symptoms. Patient again asked for removal of the blood pressure cuff because it was just too irritating and pinching for her to tolerate. I did remove this to help. Patient has been observed here. She has drank fluids. She is holding them down. Phenergan seem to work better for her. I will still send her home with both Phenergan and Zofran so she has options. Lab Data Attestation: I reviewed the patient's lab results. Labs: Laboratory Results - last 24 hr 11/21/21 11/21/21 11/21/21 01:30 01:30 01:30 WBC 15.6 H RBC 5.14 Hgb 15.8 H Hct 45.3 MCV 88.1 MCH 30.7 MCHC 34.9 RDW Std Deviation 37.5 RDW Coeff of Abigail 11.8 Plt Count 292 MPV 10.3 Immature Gran % (Auto) 0.400 Neut % (Auto) 72.2 H Lymph % (Auto) 18.6 L Stanley % (Auto) 8.4 Eos % (Auto) 0.1 Baso % (Auto) 0.3 Absolute Neuts (auto) 11.3 H Absolute Lymphs (auto) 2.90 Nucleated RBC % 0 Sodium 134 L Potassium 3.4 L Chloride 97 L Carbon Dioxide 24.0 Anion Gap 13 BUN 19 H Creatinine 1.05 H Estim Creat Clear Calc 74.42 Est GFR (MDRD) Af Amer 86 Est GFR (MDRD) Non-Af 71 BUN/Creatinine Ratio 18.1 Glucose 92 Calcium 10.1 Total Bilirubin 1.10 H AST 14 L ALT 16 Alkaline Phosphatase 59 Total Protein 8.3 H Albumin 4.7 Globulin 3.6 Albumin/Globulin Ratio 1.3 Lipase 57 L Serum , Qual NEGATIVE Discharge Plan Triage Chief Complaint: Nausea/Vomiting ED Provider: Tristin Valle Dx/Rx/DC Orders Clinical Impression: Nausea & vomiting Instructions: ED Vomiting (Adult) Prescriptions: New promethazine [Promethegan] 25 mg suppository 25 mg RECTAL Q6H PRN PRN (Reason: Nausea) Qty: 6 0RF ondansetron 4 mg tablet,disintegrating 4 mg PO Q8H PRN (Reason: nausea and vomiting) Qty: 10 0RF Primary Care Provider: Toby Aceves Referrals: Toby Aceves MD [Primary Care Provider] - 3-5 Days Disposition Disposition: Home, Self Care Discharge Date/Time: 11/21/21 06:18
[2021-11-21 01:47] LABS: Absolute Neutrophil Count 11.3 X10^3/uL (2.0-7.7); Basophil# 0.05 X10^3/uL; Basophil% 0.3 % (0-1); Eosinophil# 0.01 X10^3/uL; Eosinophils% 0.1 % (0-5); Hematocrit 45.3 % (37-47); Hemoglobin 15.8 g/dL (12.0-15.0); Lymphocyte % 18.6 % (19-41); Mean Corp Hgb Conc 34.9 g/dL (32-36); Mean Corpuscular Hgb 30.7 pg (27.0-32.0); Mean Corpuscular Volume 88.1 fL (81-99); Mean Platelet Vol. 10.3 fl (6.2-12.0); Monocyte# 1.31 X10^3/uL; Monocyte% 8.4 % (0-10); NRBC Flagged by Analyzer 0 % (0-5); Neutrophil # 11.25 X10^3/uL (2.7-7.7); Neutrophil % 72.2 % (47-70); Platelet Count 292 K/mm3 (150-450); RBC Distribution Width CV 11.8 % (11.6-14.6); RBC Distribution Width SD 37.5 fl (35.1-43.9); Red Blood Count 5.14 M/mm3 (4.2-5.4); White Blood Count 15.6 K/mm3 (4.4-11.0)
[2021-11-21] MEDS: Ondansetron 4 MG/2 ML Vial IV (01:48)
[2021-11-21] MEDS: 0.9% Normal Saline 1,000 ML 1000 ML IV ×2 (01:48→03:20)
[2021-11-21 01:53] LABS: Internal QC Validated? YES +Cl - CLEAR BKGD; Pregnancy, Serum, hCG Quali. NEGATIVE Negative
[2021-11-21 02:03] LABS: ALB/GLOB Ratio 1.3 RATIO (0.9-2.4); AST(SGOT) 14 U/L (15-37); Alanine Aminotransfer ALT/SGPT 16 U/L (13-56); Albumin, Serum 4.7 g/dL (3.2-5.0); Alkaline Phosphatase 59 U/L (45-117); Anion Gap 13 (5-15); BUN 19 mg/dL (7-18); BUN/Creat Ratio 18.1 RATIO (10-20); Calcium,Total 10.1 mg/dL (8.5-10.1); Chloride 97 mmol/L (98-107); Creatinine, Serum 1.05 mg/dL (0.55-1.02); EST Glomerular Filtration Rate 71 mL/min (>60); Est Glom Filt Rate - Afr Amer 86 mL/min (>60); Estimated Creatinine Clearance 74.42 ml/min; Globulin 3.6 g/dL (2.2-4.2); Glucose 92 mg/dL (74-106); Lipase 57 U/L (73-393); Potassium 3.4 mmol/L (3.5-5.1); Protein, Total 8.3 g/dL (6.4-8.2); Sodium Level 134 mmol/L (136-145)
[2021-11-21 04:52] VITALS: BP 132/74; PULSE 74; RESP 17; O2SAT 98
[2021-11-21] MEDS: proMETHazine 25 MG/ML Syringe 12.5 MG IM (05:11)
[2021-11-21] MEDS: Dicyclomine 20 MG/2 ML Vial IM (05:11)
[2021-11-21 06:00] VITALS: BP 122/74; PULSE 70; O2SAT 99
== END 2021-11-21 06:18 | disposition home or self-care (01) ==
PROVIDERS: Emergency Provider Emergency Medicine; PCP Family Medicine; Visit Provider Emergency Medicine
DX: R11.2 Nausea with vomiting, unspecified (principal); R19.7 Diarrhea, unspecified; R10.9 Unspecified abdominal pain
CPT/HCPCS: 80053; 83690; 84703; 85025; 99282; J7030; A4216; J2405

== ENCOUNTER 2021-11-22 20:36 | Emergency (ER) | payer MEDICAID, SELFPAY ==
[2021-11-22 20:36] VITALS: BP 120/85; PULSE 77; RESP 18; TEMP 36.8; O2SAT 98; BMI 26.5
--- NOTE | 2021-11-22 21:24 | EDS_ITS ---
HPI History of Present Illness Chief Complaint: General Illness Detail of Chief Complaint: Nausea and vomiting. Informant: patient and parent Onset/Context/Timing Onset: Month(s) Context: Gradual Onset Timing: Intermittent Current Severity: Mild Maximum Severity: Mild Narrative Narrative: 89-year-old female no seen past medical history. Prior surgery she had a D&C. She had intermittent nausea and vomiting for the last several months. She had extensive laboratory work-up which all been neg ative. And even a CAT scan of abdomen pelvis in August which was completely normal. She had nausea vomiting since Friday. Decreased p.o. intake. Says her throat feels sore from vomiting. Her last menstrual period was 3 weeks ago. She has had recent negative test. She does have a history of marijuana use and she and I discussed that in the past that could be causing vomiting. Mom states the patient said her whole body got numb tonight. Mom states I want answers. Prior similar symptoms: Yes Recent Illness/Hospitalization: No PFSH PFSH Medical History (Updated 11/22/21 @ 22:[address] Francisco Arora MD) Septate uterus Home Medications ondansetron 4 mg disintegrating tablet 4 mg PO Q8H PRN nausea and vomiting #10 tabs 11/21/21 [Rx Last Taken Unknown] promethazine 25 mg rectal suppository (Promethegan) 25 mg RECTAL Q6H PRN PRN Nausea ##6 11/21/21 [Rx Last Taken Unknown] Allergy/AdvReac Type Severity Reaction Status Date / Time No Known Allergies Allergy Verified 11/22/21 20:39 Surgical History S/P dilation and curettage Social History household members: family and none current occupational status: employed current occupation: [employer] Smoking Status: Never smoker alcohol intake: never substance use type: does not use and marijuana what type of physical activity do you participate in: none seatbelt use: always do you feel safe at home: Yes additional social history: single ROS ROS ED ROS Narrative Nausea and vomiting. Review of Systems ROS Unobtainable: Denies due to encephalopathy Constitutional Constitutional ED: Denies chills Eyes Eyes: Denies blurry vision ENT ENT ED: Denies ear pain Cardiovascular Cardiovascular: Denies chest pain Respiratory/Chest Respiratory/Chest: Denies cough Gastrointestinal Gastrointestinal: Reports abdominal pain, nausea and vomiting; Denies constipation, diarrhea or melena Genitourinary Genitourinary ED: Denies dysuria or hematuria Integumentary Denies abscess Neurologic Neurologic: Denies headache(s) Psychiatric Psychiatric: Reports anxiety Endocrine Endocrinology: Denies cold intolerance Allergic/Immunologic Allergic/Immunologic ED: Denies mouth swelling EXAM Physical Exam Narrative Exam Narrative: 89-year-old female anxious. Vital signs are stable afebrile. Blood pressure 120/85. Temperature 98.3. Pulse ox 98%. H EENT exam normal. Posterior pharynx is normal. There is no redness or swelling. No trouble swallowing. No stridor. Moist weeks membranes. Neck nontender no lymphadenopathy. Lungs clear to auscultation. Heart regular rhythm no murmur. Abdomen soft nondistended normal bowel sounds no peritoneal signs. Moving all 4 extremities. Calves nontender. Back nontender. Neurologically she is awake alert with no focal motor deficits. Const Vital Signs: 11/22/21 20:36 Temperature 98.3 F Temperature Source Temporal Pulse Rate 77 Respiratory Rate 18 Blood Pressure 120/85 H Blood Pressure Mean 96 Pulse Ox 98 Oxygen Delivery Method Room Air Positive well nourished and well developed; Negative for obese, cachectic, contractures or unkempt General Appearance ED: well developed; Negative for unkempt, cachectic, contractures or pallor Nutritional Appearance: Negative for cachectic or obese HEENT Reports moist mucous membranes Negative for trauma Eyes PERRL and EOMs intact bilaterally General Eye ED: Negative for pale conjunctiva or scleral icterus Neck no lymphadenopathy, supple and no JVD Lymph Lymphatic: Negative for other Chest Wall inspection of chest normal and palpation of chest normal Resp normal respiratory effort and clear to auscultation bilaterally Effort and Inspection: Negative for retractions Auscultation: Negative for rales, rhonchi or wheezes Cardio regular rate, regular rhythm, S1 normal heart sound, S2 normal heart sound and no murmurs Palpation: Negative for palpable S3 Rate: Negative for bradycardia Rhythm: Negative for abnormal rhythm GI normal to inspection, nondistended, normoactive bowel sounds, non-tender, non- distended, hepatosplenomegaly and no masses Inspection: Negative for abdominal distention Auscultation: normoactive bowel sounds Palpation: soft; Negative for tender, guarding, splenomegaly or mass Back/Spine no CVA tenderness General Back: Negative for CVA tenderness Cervical Spine: Negative for cervical spine tenderness Thoracic Spine / Upper Back: Negative for thoracic spinal tenderness Lumbar Spine / Lower Back: Negative for lumbar spinal tenderness Extremity normal to inspection General Extremety ED: Negative for edema or tenderness General Extremity: Negative for edema Neuro oriented x3 Sensorium / Orientation: alert; Negative for orientation impaired, lethargic or stuporous Motor Exam: strength 5/5 throughout; Negative for general weakness Psych mental status grossly normal Appearance: Negative for unkempt Skin no rashes or lesions noted and no wounds General Skin Exam: Negative for jaundice or pallor Rashes: No rashes noted Trauma: Negative for abrasion Wounds: Negative for wounds noted MDM MDM MDM Narrative Medical decision making narrative: 20-year-old with recurrent nausea and vomiting the last several months. This very well may be cannabis induced nausea and vomiting. Should be treated with IV fluids and IV Zofran. Mom requested she get something for pain. She will be given Toradol. And Protonix for epigastric discomfort. She has had a CAT scan in the last several months and was completely normal. I do not think lab work will be of any assistance she has had a multiple times each of which has been negative. Exam is normal. Repeat exam patient is doing well at 10:32 PM. I went over the test results with her and her mom. I explained to him that I thought this was secondary to anxiety and her cannabis use. I went over the test that she has had over the last year and the CAT scan she had in August. Mom stated they were going to ask her to have further evaluation and no driving up there tonight. Currently the patient clinically looks well. Lab Data Attestation: I reviewed the patient's lab results. Lab results narrative: CMP unremarkable. Potassium at 3.4 was the same yesterday. BUN and creatinine are normal at 15 and 0.89 and actually improved from yesterday. Her gap is normal at 13. Liver enzymes are unremarkable. Labs: Laboratory Results - last 24 hr 11/22/21 21:25 Sodium 137 Potassium 3.4 L Chloride 101 Carbon Dioxide 23.0 Anion Gap 13 BUN 15 Creatinine 0.89 Estim Creat Clear Calc 80.41 Est GFR (MDRD) Af Amer 105 Est GFR (MDRD) Non-Af 87 BUN/Creatinine Ratio 16.9 Glucose 81 Calcium 9.0 Total Bilirubin 0.90 AST 13 L ALT 15 Alkaline Phosphatase 49 Total Protein 7.2 Albumin 4.2 Globulin 3.0 Albumin/Globulin Ratio 1.4 Discharge Plan Triage Chief Complaint: General Illness ED Provider: Francisco Arora Dx/Rx/DC Orders Clinical Impression: Nausea & vomiting, Anxiety Instructions: ED Anxiety Reaction, ED Vomiting (Adult) Prescriptions: No Action promethazine [Promethegan] 25 mg suppository 25 mg RECTAL Q6H PRN PRN (Reason: Nausea) Qty: 6 0RF ondansetron 4 mg tablet,disintegrating 4 mg PO Q8H PRN (Reason: nausea and vomiting) Qty: 10 0RF Primary Care Provider: Toby Aceves Referrals: Toby Aceves MD [Primary Care Provider] - 3-5 Days if not improving Activity Restrictions/Additional Instructions: Plenty of fluids and rest. Follow-up with your primary care physician. Zofran as needed for nausea. Disposition Disposition: Home, Self Care
[2021-11-22] MEDS: Ketorolac 30 MG/ML Syringe IV (21:36)
[2021-11-22] MEDS: LORazepam 2 MG/ML Syringe 1 MG IV (21:36)
[2021-11-22] MEDS: Ondansetron 4 MG/2 ML Vial IV (21:36)
[2021-11-22 22:05] LABS: ALB/GLOB Ratio 1.4 RATIO (0.9-2.4); AST(SGOT) 13 U/L (15-37); Alanine Aminotransfer ALT/SGPT 15 U/L (13-56); Albumin, Serum 4.2 g/dL (3.2-5.0); Alkaline Phosphatase 49 U/L (45-117); Anion Gap 13 (5-15); BUN 15 mg/dL (7-18); BUN/Creat Ratio 16.9 RATIO (10-20); Chloride 101 mmol/L (98-107); Creatinine, Serum 0.89 mg/dL (0.55-1.02); EST Glomerular Filtration Rate 87 mL/min (>60); Est Glom Filt Rate - Afr Amer 105 mL/min (>60); Estimated Creatinine Clearance 80.41 ml/min; Glucose 81 mg/dL (74-106); Potassium 3.4 mmol/L (3.5-5.1); Protein, Total 7.2 g/dL (6.4-8.2); Sodium Level 137 mmol/L (136-145)
--- NOTE | 2021-11-22 22:39 | ED.RN ---
PATIENT SEEN WALKING TO EXIT WITH HER MOTHER BEFORE DISCHARGE PAPERWORK AVAILABLE.
== END 2021-11-22 22:44 | disposition home or self-care (01) ==
PROVIDERS: Emergency Provider Emergency Medicine; PCP Family Medicine; Visit Provider Emergency Medicine
DX: R11.2 Nausea with vomiting, unspecified (principal); R10.13 Epigastric pain; F41.9 Anxiety disorder, unspecified; F12.90 Cannabis use, unspecified, uncomplicated
CPT/HCPCS: 80053; 96365; 96375; 99282; A4216; J2405

== ENCOUNTER 2022-04-22 14:28 | Emergency (ER) | payer MEDICAID, SELFPAY ==
[2022-04-22 14:30] VITALS: BP 119/74; PULSE 68; RESP 22; TEMP 36.6; O2SAT 100; BMI 26.0
== END 2022-04-22 17:45 | disposition left against medical advice (07) ==
LOC: ED 18:46
PROVIDERS: PCP Family Medicine
DX: R11.2 Nausea with vomiting, unspecified (principal); R42 Dizziness and giddiness; Z53.21 Procedure and treatment not carried out due to patient leaving prior to being seen by health care provider

== ENCOUNTER → 2022-06-12 | Outpatient (CLI) | payer MEDICAID, SELFPAY ==
[2022-06-12 12:11] LABS: Internal QC Validated? YES +Cl - CLEAR BKGD
[2022-06-12 12:13] LABS: Pregnancy, Serum, hCG Quali. NEGATIVE Negative
[2022-06-12 20:23] LABS: Chlamydia Trachomatis by PCR Negative (Negative); Neisserai gonorrhoeae by PCR Negative (Negative); Probe Check PASS; Sample Adequacy Control PASS; Specimen Processing Control PASS
== END | disposition home or self-care (01) ==
PROVIDERS: PCP Family Medicine; Referring Provider Nurse Practitioner Women's Health; Visit Provider Nurse Practitioner Women's Health
DX: N92.6 Irregular menstruation, unspecified (principal); Z11.3 Encounter for screening for infections with a predominantly sexual mode of transmission
CPT/HCPCS: 36415; 84703; 87491; 87591

== ENCOUNTER 2023-02-03 15:16 | Emergency (ER) | payer MEDICAID, SELFPAY ==
[2023-02-03 15:18] VITALS: BP 119/76; PULSE 107; RESP 20; TEMP 36.3; O2SAT 100; BMI 29.7
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
[2023-02-03] MEDS: Morphine 4 MG/ML Syringe IV (15:45)
[2023-02-03] MEDS: Ondansetron 4 MG/2 ML Vial IV (15:45)
[2023-02-03] MEDS: 0.9% Normal Saline 1,000 ML 150 ML IV (15:50)
[2023-02-03 15:51] LABS: Absolute Lymphocyte Count 2.95 X10^3/uL (0.83-4.51); Absolute Neutrophil Count 5.6 X10^3/uL (2.0-7.7); Basophil# 0.04 X10^3/uL; Basophil% 0.4 % (0-1); Eosinophil# 0.04 X10^3/uL; Eosinophils% 0.4 % (0-5); Hematocrit 41.9 % (37-47); Lymphocyte # 2.95 X10^3/ul (0.83-4.51); Lymphocyte % 31.4 % (19-41); Mean Corp Hgb Conc 33.4 g/dL (32-36); Mean Corpuscular Hgb 30.6 pg (27.0-32.0); Mean Corpuscular Volume 91.5 fL (81-99); Mean Platelet Vol. 9.9 fl (6.2-12.0); Monocyte# 0.72 X10^3/uL; Monocyte% 7.7 % (0-10); NRBC Flagged by Analyzer 0 % (0-5); Neutrophil # 5.63 X10^3/uL (2.7-7.7); Neutrophil % 59.9 % (47-70); Platelet Count 263 K/mm3 (150-450); RBC Distribution Width CV 11.8 % (11.6-14.6); RBC Distribution Width SD 39.7 fl (35.1-43.9); Red Blood Count 4.58 M/mm3 (4.2-5.4); White Blood Count 9.4 K/mm3 (4.4-11.0)
[2023-02-03 16:05] LABS: Internal QC Validated? YES +Cl - CLEAR BKGD; Pregnancy, Serum, hCG Quali. NEGATIVE Negative; Record Kit Lot#, Serum Preg. 667200
[2023-02-03 16:10] LABS: Anion Gap 4 (5-15); BUN 13 mg/dL (7-18); BUN/Creat Ratio 15.2 RATIO (10-20); Calcium,Total 8.9 mg/dL (8.5-10.1); Chloride 107 mmol/L (98-107); Creatinine, Serum 0.85 mg/dL (0.55-1.02); EST Glomerular Filtration Rate 89 mL/min (>60); Est Glom Filt Rate - Afr Amer 108 mL/min (>60); Estimated Creatinine Clearance 90.41 ml/min; Glucose 90 mg/dL (74-106); Potassium 3.8 mmol/L (3.5-5.1); Sodium Level 138 mmol/L (136-145)
[2023-02-03 17:39] LABS: Color, Urine Yellow (Yellow); Glucose, Dipstick Normal (Normal); Ketone-Dipstick Negative (Negative); Leukocyte Esterase-Dipstick 25 /ul (Negative); Mucous, Urine 0 SEEN /hpf (<or=2+); Nitrite-Dipstick Negative (Negative); Occult Blood-Urine 250 /ul (Negative); Protein-Dipstick 15 mg/dl (Negative); Urine Bilirubin Dipstick Negative (Negative); Urine Clarity Clear (Clear); Urine Urobilinogen Normal (Normal)
[2023-02-03 17:46] LABS: Bacteria 1+ /hpf (None Seen); Red Blood Cells-Urine 5-10 SEEN /hpf (0-5); Squamous Epithelial Cells - UA 5-10 SEEN /hpf (5-10); White Blood Cells 5-10 SEEN /hpf (0-5)
== END 2023-02-03 18:40 | disposition home or self-care (01) ==
PROVIDERS: Emergency Provider Emergency Medicine; PCP Family Medicine; Visit Provider Emergency Medicine
DX: N93.9 Abnormal uterine and vaginal bleeding, unspecified (principal)
CPT/HCPCS: 74177; 80048; 81001; 84703; 85025; 96361; 96374; 96375; 99282; J7030; Q9967; A4216; J2405

== ENCOUNTER 2023-05-30 15:21 | Emergency (ER) | payer MEDICAID, SELFPAY ==
[2023-05-30 15:22] VITALS: BP 122/94; PULSE 76; RESP 14; TEMP 36.6; O2SAT 100; BMI 30.2
--- NOTE | 2023-05-30 15:26 | EX.ED.DYSGE1 ---
HPI History of Present Illness Chief Complaint: Abd Pain [facility] Medical History Septate uterus Home Medications medroxyprogesterone 150 mg/mL intramuscular suspension (Depo-Provera) 150 mg IM [id number] #1 mL 06/12/22 [Rx Last Taken Unknown] Allergy/AdvReac Type Severity Reaction Status Date / Time No Known Allergies Allergy Verified 05/30/23 15:22 Surgical History S/P dilation and curettage Social History household members: family and none current occupational status: employed current occupation: [employer] Smoking Status: Never smoker alcohol intake: never substance use type: does not use and marijuana what type of physical activity do you participate in: none seatbelt use: always do you feel safe at home: Yes additional social history: single EXAM Physical Exam Const Vital Signs: 05/30/23 15:22 Temperature 98 F Temperature Source Temporal Pulse Rate 76 Respiratory Rate 14 Blood Pressure 122/94 H Blood Pressure Mean 103 Pulse Ox 100 Oxygen Delivery Method Room Air MDM MDM MDM Narrative Medical decision making narrative: HISTORY OF PRESENT ILLNESS: 22year old male presents with abdominal pain. Notes associated nausea vomiting for past 3 days. She further states abdominal pain is everywhere . Began 3 days ago has been intermittent with no alleviating exacerbating features. Denies hematochezia, melena , bilious emesis. Denies history of abdominal surgeries notes history of dilation curettage. Denies fever. REVIEW OF SYSTEMS: All other systems reviewed and are negative except as noted in the history of present illness. At least 10 review of systems reviewed and are negative except as noted in history of present illness. PHYSICAL EXAM: Nursing triage notes reviewed, Vital signs reviewed Constitutional: please see mdm HENT: MMM Eyes: Pupils equal round and reactive to light, Extraocular muscles intact Neck: No stridor, no JVD, full neck ROM Lungs: Clear to auscultation, No wheezing or rales. No increased work of breathing, no conversational dyspnea, no accessory muscle use, no nasal flaring. No respiratory distress noted Heart: Regular rate and rhythm, No murmurs, No rubs and No gallops, 2+ distal pulses (radial, femoral, posterior tibial) in all extremities Abdomen: Soft, no rigidity, rebound or guarding, no obvious peritoneal signs, no palpable pulsatile abdominal masses, no auscultated abdominal bruit : No CVAT Extremities: No edema Neuro: No focal neurological deficits, cranial nerves II through XII intact, 5/5 strength in all extremities. Intact sensation to light touch in all extremities, 2+ reflexes bilateral patella tendons. Normal gait. No ataxia. Skin: No rash or lesions noted MEDICAL DECISION MAKING: Chief Complaint: abdominal pain External records reviewed: prior ED records reviewed: Last ED visit in January 2023. Imaging studies reviewed: CT scan abdomen pelvis from January 2023 shows no definitive acute or significant abnormality Factors affecting care: History of abnormal uterine bleeding Social determinants of health:none History obtained from others: none Consults: none ALL IMAGES (IF OBTAINED) HAVE BEEN PERSONALLY REVIEWED AND INTERPRETED BY MYSELF. EKG with sinus bradycardia, normal axis, normal intervals, no STEMI, no prolongation of QT interval, T wave inversion noted in 3 which was present prior EKG from March 2021 CBC without leukocytosis, severe anemia, no thrombocytopenia. CMP without evidence of acute kidney injury, significant electrolyte abnormality, anion gap, no evidence hepatobiliary pathology. Urinalysis shows no evidence of urinary inflammation suggestive of UTI Urine test is negative Lipase is wnl indicating no pancreatic inflammation. The synthesis of the patient's history, physical exam labs suggest no acute life-limiting intra-abdominal pathology. I suspect the patient is suffering from cannabinol hyperemesis syndrome given report of decreased marijuana use secondary to nausea vomiting. She is initially given Reglan which reduce side effect of acute dystonic reaction was treated with Benadryl. She was then given haloperidol. Patient reported improved symptoms. She was then discharged with p.o. Zofran to take as needed instructions to discontinue smoking marijuana permanently. MDM Narrative: The patient was hemodynamically stable, afebrile, nontoxic-appearing. Abdominal exam was benign not consistent with acute surgical process. No indication for advanced imaging of the abdomen pelvis at this time. I obtained a broad lab workup to further assess the patient's etiology to assure there is no signs of hepatobiliary obstruction, significant systemic inflammation, pancreatitis, , UTI, significant dehydration or electrolyte disturbances. I considered the following differential diagnosis: AAA, small bowel obstruction, abdominal perforation, appendicitis, pancreatitis, hepatobiliary pathology (acute cholecystitis), mesenteric ischemia, abnormalities such as pyelonephritis, nephrolithiasis I see nothing that would suggest an acute abdomen at this time. Based on history physical exam, risk factors, I have a low for bowel obstruction, incarcerated hernia, acute pancreatitis, intra-abdominal abscess, perforated viscus, diverticulitis, cholecystitis, appendicitis is very low. The patient and/or family, caregivers express understanding. The patient and/or family, caregivers agrees with the plan. Total critical care time today provided was at least 0 minutes. This excludes separately billable procedures. Critical care time (if documented) is secondary to the patient having high probability of clinically significant/life threatening deterioration in the patient's condition which required my urgent intervention. Shared decision making: I will have a discussion with the patient and or visitors regarding risk/benefits of further testing or admission. They will be made aware of of the risk/benefits inherent in this decision they will be given the opportunity to voice understanding. Impression: 1. Hyperemesis Syndrome 2. Nausea Vomiting 3. Dehydration Disposition: Discharge Home Cristhian Richey DO Lab Data Labs: Laboratory Results - last 24 hr 05/30/23 05/30/23 15:40 18:20 WBC 9.4 RBC 4.84 Hgb 15.1 H Hct 43.3 MCV 89.5 MCH 31.2 MCHC 34.9 RDW Std Deviation 38.5 RDW Coeff of Abigail 11.9 Plt Count 287 MPV 10.0 Sodium 139 Potassium 3.7 Chloride 107 Carbon Dioxide 26.0 Anion Gap 6 BUN 13 Creatinine 1.01 Estim Creat Clear Calc 72.89 Est GFR (MDRD) Af Amer 89 Est GFR (MDRD) Non-Af 73 BUN/Creatinine Ratio 12.9 Glucose 100 Calcium 9.5 Total Bilirubin 0.60 AST 8 L ALT 15 Alkaline Phosphatase 64 Total Protein 7.5 Albumin 4.1 Globulin 3.4 Albumin/Globulin Ratio 1.2 Lipase 25 Urine Color Yellow Urine Clarity Clear Urine pH 6.5 Ur Specific [place] 1.015 Urine Protein 30 H Urine Glucose (UA) Normal Urine Ketones 5 H Urine Occult Blood 10 H Urine Nitrite Negative Urine Bilirubin Negative Urine Urobilinogen Normal Ur Leukocyte Esterase 100 H Urine RBC 0 SEEN Urine WBC 0-5 SEEN Ur Squamous Epith Cells 5-10 SEEN Urine Bacteria RARE Urine Mucus 0 SEEN Urine Test Negative Discharge Plan Triage Chief Complaint: Abd Pain ED Provider: Cristhian Richey Dx/Rx/DC Orders Prescriptions: No Action medroxyprogesterone [Depo-Provera] 150 mg/mL suspension 150 mg IM [id number] Qty: 1 3RF Primary Care Provider: Toby Aceves Referrals: Toby Aceves MD [Primary Care Provider] -
--- NOTE | 2023-05-30 15:32 | EKG12_ITS ---
Test Reason : ABD PAIN Blood Pressure : / mmHG Vent. Rate : 054 BPM Atrial Rate : 047 BPM P-R Int : 000 ms QRS Dur : 094 ms QT Int : 456 ms P-R-T Axes : 000 100 -22 degrees QTc Int : 432 ms JUNCTIONAL RHYTHM Rightward axis T wave abnormality, consider inferior ischemia Abnormal ECG Confirmed by NBA INTERIANO, JOSE L ([id number]), design editor LIN CAVAZOS ([id number]) on 06/03/2023 8:25:48 AM Referred By: Cristhian Richey Confirmed By:JOSE L ARANGO MD
[2023-05-30] MEDS: 0.9% Normal Saline (1000mL) 1,000 ML 1000 ML IV (15:41)
[2023-05-30] MEDS: Metoclopramide 10 MG/2 ML Vial 5 MG IV (15:42)
[2023-05-30] MEDS: Famotidine 200 MG/20 ML MDV 20 MG in 0.9% Normal Saline (Pres. free 8 ML 300 MG IV (15:42)
[2023-05-30 15:55] LABS: Hematocrit 43.3 % (37-47); Hemoglobin 15.1 g/dL (12.0-15.0); Mean Corp Hgb Conc 34.9 g/dL (32-36); Mean Corpuscular Hgb 31.2 pg (27.0-32.0); Mean Corpuscular Volume 89.5 fL (81-99); Platelet Count 287 K/mm3 (150-450); RBC Distribution Width CV 11.9 % (11.6-14.6); RBC Distribution Width SD 38.5 fl (35.1-43.9); Red Blood Count 4.84 M/mm3 (4.2-5.4); White Blood Count 9.4 K/mm3 (4.4-11.0)
[2023-05-30] MEDS: DiphenhydrAMINE 50 MG/ML Syringe 25 MG IV (16:08)
[2023-05-30 16:12] LABS: ALB/GLOB Ratio 1.2 RATIO (0.9-2.4); AST(SGOT) 8 U/L (15-37); Alanine Aminotransfer ALT/SGPT 15 U/L (13-56); Albumin, Serum 4.1 g/dL (3.2-5.0); Alkaline Phosphatase 64 U/L (45-117); Anion Gap 6 (5-15); BUN 13 mg/dL (7-18); BUN/Creat Ratio 12.9 RATIO (10-20); Calcium,Total 9.5 mg/dL (8.5-10.1); Chloride 107 mmol/L (98-107); Creatinine, Serum 1.01 mg/dL (0.55-1.02); EST Glomerular Filtration Rate 73 mL/min (>60); Est Glom Filt Rate - Afr Amer 89 mL/min (>60); Estimated Creatinine Clearance 72.89 ml/min; Globulin 3.4 g/dL (2.2-4.2); Glucose 100 mg/dL (74-106); Lipase 25 U/L (13-75); Potassium 3.7 mmol/L (3.5-5.1); Protein, Total 7.5 g/dL (6.4-8.2); Sodium Level 139 mmol/L (136-145)
[2023-05-30 17:21] VITALS: BP 120/70; PULSE 80; RESP 16; O2SAT 99
[2023-05-30] MEDS: Haloperidol Lactate 5 MG/ML Vial 2 MG IV (18:00)
[2023-05-30] MEDS: 0.9% Normal Saline (1000mL) 1,000 ML 999 ML IV (18:00)
[2023-05-30 18:25] LABS: Mucous, Urine 0 SEEN /hpf (<or=2+); Red Blood Cells-Urine 0 SEEN /hpf (0-5)
[2023-05-30 18:39] LABS: Color, Urine Yellow (Yellow); Glucose, Dipstick Normal (Normal); Ketone-Dipstick 5 mg/dl (Negative); Leukocyte Esterase-Dipstick 100 /ul (Negative); Nitrite-Dipstick Negative (Negative); Occult Blood-Urine 10 /ul (Negative); Protein-Dipstick 30 mg/dl (Negative); Specific Gravity, Urine 1.015 (1.002-1.030); Urine Bilirubin Dipstick Negative (Negative); Urine Clarity Clear (Clear); Urine Urobilinogen Normal (Normal); Urine pH 6.5 (5.0 - 8.0)
[2023-05-30 18:46] LABS: Squamous Epithelial Cells - UA 5-10 SEEN /hpf (5-10); White Blood Cells 0-5 SEEN /hpf (0-5)
[2023-05-30 18:47] LABS: Bacteria RARE /hpf (None Seen); Internal QC Validated? YES +Cl - CLEAR BKGD; Pregnancy, Urine Negative Negative
[2023-05-30 19:07] VITALS: BP 123/75; PULSE 75; RESP 16; O2SAT 99
== END 2023-05-30 19:21 | disposition home or self-care (01) ==
PROVIDERS: Emergency Provider Emergency Medicine; PCP Family Medicine; Referring Provider Emergency Medicine; Visit Provider Emergency Medicine
DX: R11.2 Nausea with vomiting, unspecified (principal); E86.0 Dehydration
CPT/HCPCS: 80053; 81001; 81025; 83690; 85027; 87428; 93005; 96361; 96365; 96375; 99284; J7030; A4216; J3490

== ENCOUNTER 2023-10-29 14:55 | Emergency (ER) | payer SELFPAY ==
[2023-10-29 14:56] VITALS: BP 98/85; PULSE 87; RESP 14; TEMP 36.5; O2SAT 98; BMI 29.2
--- NOTE | 2023-10-29 15:30 | EDS_ITS ---
HPI HPI - GI History of Present Illness Chief Complaint: Abd Pain Detail of Chief Complaint: Abdominal pain Informant: patient Abdominal Pain/Flank Pain Current Severity: 01/09 Narrative Narrative: Patient presents with abdominal pain that started 3 days ago. She has had multiple episodes of emesis. Denies diarrhea. Describes lower abdomen pain. Currently an 8 out of 10. Last menstrual period was about 2 weeks ago. Today she vomited and there was small amount of blood and became concerned so she comes in for evaluation. She denies any sick contacts. Denies urinary symptoms. Patient denies any fever. Patient denies abnormal vaginal discharge or concern for pelvic infections. Patient states she has not been sexually active in quite some time. [facility] Medical History (Updated 10/29/23 @ 20:[address] Hiwot Grace DO) Septate uterus Home Medications ?Medication ?Instructions ?Recorded ?Last Taken ?Type medroxyprogesterone 150 mg/mL 150 mg IM [id number] #1 mL 06/12/22 Unknown Rx intramuscular suspension (Depo-Provera) ondansetron 4 mg disintegrating 4 mg PO Q8H PRN PRN Nausea #10 tabs 05/30/23 Unknown Rx tablet lansoprazole 30 mg capsule,delayed 30 mg PO DAILY #14 caps 10/29/23 Unknown Rx release (Prevacid) ondansetron 4 mg disintegrating 4 mg PO Q8H PRN PRN Nausea #10 tabs 10/29/23 Unknown Rx tablet Allergy/AdvReac Type Severity Reaction Status Date / Time No Known Allergies Allergy Verified 10/29/23 14:57 Surgical History S/P dilation and curettage Social History household members: family and none current occupational status: employed current occupation: [employer] Smoking Status: Never smoker alcohol intake: never substance use type: does not use and marijuana what type of physical activity do you participate in: none seatbelt use: always do you feel safe at home: Yes additional social history: single ROS ROS ED Review of Systems ROS Unobtainable: other Constitutional Constitutional ED: Reports lethargy; Denies chills, fever(s), sweats or weight loss Eyes Eyes: Denies blurry vision, change in vision or diplopia ENT ENT ED: Denies rhinorrhea or sore throat Cardiovascular Cardiovascular: Denies chest pain, orthopnea or racing heartbeat Respiratory/Chest Respiratory/Chest: Denies cough, dyspnea, dyspnea on exertion, orthopnea or sputum Gastrointestinal Gastrointestinal: Reports abdominal pain, nausea and vomiting; Denies diarrhea Genitourinary Genitourinary ED: Denies dysuria, hematuria or urinary frequency Musculoskeletal Musculoskeletal: Denies arthralgias, back pain, myalgias or neck pain Integumentary Denies abscess, Abrasions or rash Neurologic Neurologic: Denies headache(s) or weakness Psychiatric Psychiatric: Denies anxiety, depression or suicidal thoughts Endocrine Endocrinology: Denies polydipsia, polyphagia or polyuria Hematologic/Lymphatic Hematologic/Lymphatic: Denies easy bleeding, easy bruising or lymphadenopathy Allergic/Immunologic Allergic/Immunologic ED: Denies mouth swelling, tongue swelling or urticaria EXAM Physical Exam Const Vital Signs: 10/29/23 14:56 10/29/23 16:55 10/29/23 18:00 Temperature 97.7 F L Temperature Source Temporal Pulse Rate 87 68 64 Respiratory Rate 14 16 16 Blood Pressure 98/85 H 117/65 136/78 H Blood Pressure Mean 89 82 97 Pulse Ox 98 98 98 Oxygen Delivery Method Room Air Room Air Room Air 10/29/23 20:00 Temperature Temperature Source Pulse Rate 52 L Respiratory Rate 16 Blood Pressure 112/73 Blood Pressure Mean 86 Pulse Ox 98 Oxygen Delivery Method Room Air Positive well nourished and well developed General Appearance ED: well developed and NAD HEENT Reports TM's clear and moist mucous membranes normocephalic and atraumatic; Negative for trauma or tenderness Tympanic Membrane ED: Yes TM's clear Eyes PERRL and EOMs intact bilaterally General Eye ED: Negative for pale conjunctiva or scleral icterus Neck no lymphadenopathy, supple and no JVD General: Negative for tenderness Chest Wall inspection of chest normal and palpation of chest normal Chest: Negative for tenderness Resp normal respiratory effort and clear to auscultation bilaterally Effort and Inspection: Negative for respiratory distress or pain with movement Auscultation: Negative for rhonchi, wheezes or diminished lung sounds Cardio regular rate, regular rhythm, S1 normal heart sound, S2 normal heart sound and no murmurs Peripheral Pulses: pulses 2+ throughout GI normal to inspection, nondistended, normoactive bowel sounds, soft to palpation, non-distended and no masses GI Narrative: Tenderness palpation over the right lower quadrant and suprapubic and left lower quadrant regions. There are some guarding. There is no rebound, rigidity, or pineal signs. Back/Spine no CVA tenderness and no thoracic nor lumbar tenderness Extremity normal to inspection General Extremety ED: Negative for edema General Extremity: Negative for edema Neuro oriented x3, CN's II-XII intact bilaterally, no sensory deficits noted and gait normal Sensorium / Orientation: awake, alert, oriented to person, oriented to place and oriented to time Motor Exam: strength 5/5 throughout and strength abnormal Psych mental status grossly normal Skin no rashes or lesions noted and no wounds MDM MDM MDM Narrative Medical decision making narrative: Patient presents with 3-day history of abdominal pain and vomiting. Her abdominal pain is mostly lower abdomen. She did have 1 episode of emesis with some blood in it today and she comes in for evaluation. IV line established. CBC with differential obtained for white count of 8.3 with hemoglobin 14 and platelet count of 232. Chemistries unremarkable. LFTs were normal. hCG was negative. Lactate normal at 1.3. Urinalysis normal. CT scan of the abdomen pelvis with IV and p.o. contrast was essentially normal. At this point etiology of her pain is unclear. I will put her on Prevacid and give her a prescription for Zofran. Advised to follow-up with her primary care physician within next 3 to 5 days. She is to return if worsening pain, fever, vomiting, or condition should worsen anyway. The 1 episode of emesis with blood I suspect may be related to Lisa-Hernandez tear. Patient apparently has been having some stomach issues and had a referral to GI but never went because she lost her insurance. I can give her referral to GI as well. Lab Data Attestation: I reviewed the patient's lab results. Labs: Laboratory Results - last 24 hr 10/29/23 10/29/23 15:35 16:48 WBC 8.3 RBC 4.59 Hgb 14.4 Hct 42.9 MCV 93.5 MCH 31.4 MCHC 33.6 RDW Std Deviation 41.2 RDW Coeff of Abigail 12.0 Plt Count 232 MPV 9.8 Immature Gran % (Auto) 0.400 Neut % (Auto) 63.9 Lymph % (Auto) 26.3 [place] % (Auto) 8.2 Eos % (Auto) 0.7 Baso % (Auto) 0.5 Absolute Neuts (auto) 5.3 Absolute Lymphs (auto) 2.17 Nucleated RBC % 0 Sodium 138 Potassium 4.1 Chloride 107 Carbon Dioxide 26.0 Anion Gap 5 BUN 14 Creatinine 0.87 Estim Creat Clear Calc 102.98 Est GFR (MDRD) Af Amer 104 Est GFR (MDRD) Non-Af 86 BUN/Creatinine Ratio 16.0 Glucose 103 Lactic Acid 1.3 Calcium 9.3 Total Bilirubin 0.40 AST 15 ALT 19 Alkaline Phosphatase 58 Total Protein 6.9 Albumin 3.8 Globulin 3.1 Albumin/Globulin Ratio 1.2 Serum , Qual NEGATIVE Urine Color Yellow Urine Clarity Sl. Cloudy Urine pH 7.0 Ur Specific [place] 1.005 Urine Protein Negative Urine Glucose (UA) Normal Urine Ketones Negative Urine Occult Blood Negative Urine Nitrite Negative Urine Bilirubin Negative Urine Urobilinogen Normal Ur Leukocyte Esterase 25 H Urine RBC 0-5 SEEN Urine WBC 0-5 SEEN Ur Squamous Epith Cells 10-25 SEEN Urine Bacteria 0 SEEN Urine Mucus 0 SEEN Radiography Diagnostic Testing: Clinical Impression(s) from Imaging Studies Abdomen/Pelvis CT 10/29/23 17:20 IMPRESSION: No definite acute or significant abnormality seen. Electronically Signed: Marquis Ordaz MD at 20:08 EDT , Discharge Plan Triage Chief Complaint: Abd Pain ED Provider: Hiwot Grace Dx/Rx/DC Orders Clinical Impression: Abdominal pain, Vomiting Instructions: ED Abdominal Pain Unkn Cause Fem, ED Vomiting (Adult) Prescriptions: New ondansetron 4 mg tablet,disintegrating 4 mg PO Q8H PRN PRN (Reason: Nausea) Qty: 10 0RF lansoprazole [Prevacid] 30 mg capsule,delayed release(DR/EC) 30 mg PO DAILY Qty: 14 0RF No Action medroxyprogesterone [Depo-Provera] 150 mg/mL suspension 150 mg IM [id number] Qty: 1 3RF ondansetron 4 mg tablet,disintegrating 4 mg PO Q8H PRN PRN (Reason: Nausea) Qty: 10 0RF Primary Care Provider: Toby Aceves Referrals: Toby Aceves MD [Primary Care Provider] - 3-5 Days Friend,DO Govind [Med Staff - Active Staff] - 3-5 Days Print Language: [place] Disposition Disposition: Home, Self Care
[2023-10-29 15:51] LABS: Absolute Lymphocyte Count 2.17 X10^3/uL (0.83-4.51); Absolute Neutrophil Count 5.3 X10^3/uL (2.0-7.7); Basophil# 0.04 X10^3/uL; Basophil% 0.5 % (0-1); Eosinophil# 0.06 X10^3/uL; Eosinophils% 0.7 % (0-5); Hematocrit 42.9 % (37-47); Hemoglobin 14.4 g/dL (12.0-15.0); Lymphocyte # 2.17 X10^3/ul (0.83-4.51); Lymphocyte % 26.3 % (19-41); Mean Corp Hgb Conc 33.6 g/dL (32-36); Mean Corpuscular Hgb 31.4 pg (27.0-32.0); Mean Corpuscular Volume 93.5 fL (81-99); Mean Platelet Vol. 9.8 fl (6.2-12.0); Monocyte# 0.68 X10^3/uL; Monocyte% 8.2 % (0-10); NRBC Flagged by Analyzer 0 % (0-5); Neutrophil # 5.28 X10^3/uL (2.7-7.7); Neutrophil % 63.9 % (47-70); Platelet Count 232 K/mm3 (150-450); RBC Distribution Width SD 41.2 fl (35.1-43.9); Red Blood Count 4.59 M/mm3 (4.2-5.4); White Blood Count 8.3 K/mm3 (4.4-11.0)
[2023-10-29] MEDS: Ondansetron 4 MG/2 ML Vial IV (16:07)
[2023-10-29] MEDS: 0.9% Normal Saline (1000mL) 1,000 ML 125 ML IV (16:07)
[2023-10-29 16:08] LABS: ALB/GLOB Ratio 1.2 RATIO (0.9-2.4); AST(SGOT) 15 U/L (15-37); Alanine Aminotransfer ALT/SGPT 19 U/L (13-56); Albumin, Serum 3.8 g/dL (3.2-5.0); Alkaline Phosphatase 58 U/L (45-117); Anion Gap 5 (5-15); BUN 14 mg/dL (7-18); Calcium,Total 9.3 mg/dL (8.5-10.1); Chloride 107 mmol/L (98-107); Creatinine, Serum 0.87 mg/dL (0.55-1.02); EST Glomerular Filtration Rate 86 mL/min (>60); Est Glom Filt Rate - Afr Amer 104 mL/min (>60); Estimated Creatinine Clearance 102.98 ml/min; Globulin 3.1 g/dL (2.2-4.2); Glucose 103 mg/dL (74-106); Potassium 4.1 mmol/L (3.5-5.1); Protein, Total 6.9 g/dL (6.4-8.2); Sodium Level 138 mmol/L (136-145)
[2023-10-29] MEDS: Morphine 4 MG/ML Syringe IV (16:08)
[2023-10-29 16:10] LABS: Internal QC Validated? YES +Cl - CLEAR BKGD; Pregnancy, Serum, hCG Quali. NEGATIVE Negative
[2023-10-29 16:42] LABS: Lactic Acid 1.3 mmol/L (0.4-1.9)
[2023-10-29 16:53] LABS: Bacteria 0 SEEN /hpf (None Seen); Mucous, Urine 0 SEEN /hpf (<or=2+)
[2023-10-29 16:55] VITALS: BP 117/65; PULSE 68; RESP 16; O2SAT 98
[2023-10-29 16:56] LABS: Color, Urine Yellow (Yellow); Glucose, Dipstick Normal (Normal); Ketone-Dipstick Negative (Negative); Leukocyte Esterase-Dipstick 25 /ul (Negative); Nitrite-Dipstick Negative (Negative); Occult Blood-Urine Negative /ul (Negative); Protein-Dipstick Negative (Negative); Specific Gravity, Urine 1.005 (1.002-1.030); Urine Bilirubin Dipstick Negative (Negative); Urine Clarity Sl. Cloudy (Clear); Urine Urobilinogen Normal (Normal)
[2023-10-29 17:08] LABS: Red Blood Cells-Urine 0-5 SEEN /hpf (0-5); Squamous Epithelial Cells - UA 10-25 SEEN /hpf (5-10); White Blood Cells 0-5 SEEN /hpf (0-5)
--- NOTE | 2023-10-29 17:20 | CT_ITS ---
STUDY: CT ABDOMEN AND PELVIS WITH CONTRAST REASON FOR EXAM: Female, 22 years old. abdominal pain -- IV PO Contrast RADIATION DOSAGE (If Supplied By Facility): CTDIvol = ( 11.13 ) mGy, DLP = ( 713.27 ) mGycm TECHNIQUE: Transaxial images were obtained from the dome of the diaphragm to the symphysis pubis without oral contrast. Oral and amp; IV Gastrografin and amp; 100mL Isovue-300 was administered. Sagittal and coronal images were reconstructed. Individualized dose optimization techniques were used for this CT. COMPARISON: 02/03/2023 FINDINGS: The visualized lung bases are unremarkable. The visualized portions of the heart are within normal limits. Normal liver. Normal gallbladder and extrahepatic biliary system. Normal spleen. Normal pancreas. Normal bilateral adrenal glands. Normal right kidney. Normal left kidney. Normal visualized stomach. Normal small intestine. Normal colon. The appendix is visualized and appears normal. Normal abdominal aorta. Normal inferior vena cava. Normal retroperitoneum. Normal urinary bladder. Normal visualized uterus. Normal abdominal wall. Normal osseous structures. CT/Abdomen/Pelvis WITH Contrast IMPRESSION: No definite acute or significant abnormality seen. Electronically Signed: Marquis Ordaz MD at 20:08 EDT ,
[2023-10-29 18:00] VITALS: BP 136/78; PULSE 64; RESP 16; O2SAT 98
[2023-10-29 20:00] VITALS: BP 112/73; PULSE 52; RESP 16; O2SAT 98
[2023-10-29 20:32] VITALS: BP 114/65; PULSE 79; RESP 16; TEMP 36.2; O2SAT 98
== END 2023-10-29 20:34 | disposition home or self-care (01) ==
PROVIDERS: Emergency Provider Emergency Medicine; PCP Family Medicine; Visit Provider Emergency Medicine
DX: R10.31 Right lower quadrant pain (principal); K92.0 Hematemesis; R10.32 Left lower quadrant pain; Z79.899 Other long term (current) drug therapy
CPT/HCPCS: 74177; 80053; 81001; 83605; 84703; 85025; 96361; 96374; 96375; 99282; J7030; Q9967; A4216; J2405

== ENCOUNTER 2024-04-22 14:19 | Emergency (ER) | payer SELFPAY ==
[2024-04-22 14:20] VITALS: BP 121/73; PULSE 73; RESP 18; TEMP 36.1; O2SAT 99; BMI 29.7
--- NOTE | 2024-04-22 14:40 | EDS_ITS ---
HPI History of Present Illness Chief Complaint: Nausea/Vomiting/Diarrhea Narrative Narrative: Patient is a 23-year-old female with past medical history of D&C who presented to the emerged part with chief complaint of abdominal pain nausea vomiting diarrhea since this morning. States that she has had multiple episodes of vomiting this afternoon she noted that the last time she vomited she noted some blood and notes that she felt lightheaded afterwards like she may pass out. She states that she thought things would start to improve although they do not therefore she came here for further evaluation management. Patient denies any recent contacts. Patient states that she is having sexually active in 2 months and she had a period last month. [facility] Medical History (Updated 04/22/24 @ 18:[address] Mihir Trejo DO) Septate uterus Home Medications ?Medication ?Instructions ?Recorded ?Last Taken ?Type medroxyprogesterone 150 mg/mL 150 mg IM [id number] #1 mL 06/12/22 Unknown Rx intramuscular suspension (Depo-Provera) ondansetron 4 mg disintegrating 4 mg PO Q8H PRN PRN Nausea #10 tabs 05/30/23 Unknown Rx tablet lansoprazole 30 mg capsule,delayed 30 mg PO DAILY #14 caps 10/29/23 Unknown Rx release (Prevacid) ondansetron 4 mg disintegrating 4 mg PO Q8H PRN PRN Nausea #10 tabs 10/29/23 Unknown Rx tablet dicyclomine 10 mg capsule 10 mg PO TID #20 caps 04/22/24 Unknown Rx ondansetron 4 mg disintegrating 4 mg PO Q6H PRN nausea and 04/22/24 Unknown Rx tablet vomiting #20 tabs Allergy/AdvReac Type Severity Reaction Status Date / Time No Known Allergies Allergy Verified 10/29/23 14:57 Surgical History S/P dilation and curettage Social History household members: family and none current occupational status: employed current occupation: [employer] Smoking Status: Never smoker alcohol intake: never substance use type: does not use and marijuana what type of physical activity do you participate in: none seatbelt use: always do you feel safe at home: Yes additional social history: single ROS ROS ED ROS Narrative Constitutional: Denies any fevers, chills, headaches malaise, dizziness Cardiovascular: Denies chest pain or palpitations Respiratory: Denies cough or wheezing shortness of breath Abdomen: Complains of abdominal pain as noted above nausea vomiting and diarrhea as well as hematemesis : Denies pain phonation, hematuria, polyuria Neurological: Denies numbness, weakness, tingling Musculoskeletal: Denies back pain Skin: Denies rashes or lesions EXAM Physical Exam Narrative Exam Narrative: General: Patient lying in bed rest comfortably did not appear to be in acute distress Head: Atraumatic, normocephalic Eyes: PERRL bilateral, EOMI bilateral no conjunctival injection noted Neck: Soft, supple, trachea midline Cardiovascular: Regular in rhythm no murmurs gallops rubs noted Respiratory: Clear to auscultation bilaterally Extremities: +5/5 strength noted in the bilateral upper and lower extremities Neurological: Patient is following commands knew that she was at [facility] years 2023 Skin: Warm, dry, intact Const Vital Signs: 04/22/24 14:20 04/22/24 17:48 Temperature 97 F L Temperature Source Temporal Pulse Rate 73 70 Respiratory Rate 18 18 Blood Pressure 121/73 H 111/81 H Blood Pressure Mean 89 91 Pulse Ox 99 98 Oxygen Delivery Method Room Air Room Air MDM MDM MDM Narrative Medical decision making narrative: Patient is a 23-year-old female who presented to the emergency department chief complaint of abdominal pain nausea vomiting diarrhea, hematemesis. Patient will have a workup performed here on the differential diagnose includes but not limited to Lisa-Hernandez tear, viral gastroenteritis, , ectopic p regnancy, UTI. Once workup is obtained reviewed she will be reevaluated. Patient be given Zofran and Bentyl. Patient's CBC was reviewed and showed a leukocytosis of 12,000, hemoglobin stable 13.9, plate count was noted be normal at 250. Patient sodium normal at 142, potassium normal 3.7, creatinine normal at 0.93. Patient AST and ALT were 11 and 18 respectively. Patient lipase normal at 32. Patient total bilirubin normal at 0.40. Patient's urinalysis was reviewed and showed no evidence of infection and negative test. Patient did leave before treatment was completed, however she had her IV and therefore she was asked to return which she did and wanted to discuss the results of her blood work. Discussed results with the patient and she would like to go home at this point time. She will be given prescriptions for Bentyl and Zofran. She is advised to follow-up with her primary care physician in the outpatient setting. She was encouraged to return with worsening symptoms or any concerns. She is agreeable plan all questions were answered she was discharged home in stable condition. Lab Data Labs: Laboratory Results - last 24 hr 04/22/24 04/22/24 13:55 14:44 WBC 12.2 H RBC 4.41 Hgb 13.9 Hct 40.0 MCV 90.7 MCH 31.5 MCHC 34.8 RDW Std Deviation 39.4 RDW Coeff of Abigail 11.8 Plt Count 250 MPV 9.8 Immature Gran % (Auto) 0.400 Neut % (Auto) 72.3 H Lymph % (Auto) 19.8 [place] % (Auto) 6.7 Eos % (Auto) 0.3 Baso % (Auto) 0.5 Absolute Neuts (auto) 8.8 H Absolute Lymphs (auto) 2.42 Nucleated RBC % 0 Sodium 142 Potassium 3.7 Chloride 113 H Carbon Dioxide 24.0 Anion Gap 5 BUN 14 Creatinine 0.93 Estim Creat Clear Calc 96.18 Est GFR (MDRD) Af Amer 96 Est GFR (MDRD) Non-Af 80 BUN/Creatinine Ratio 15.0 Glucose 117 H Calcium 9.0 Total Bilirubin 0.40 AST 11 L ALT 18 Alkaline Phosphatase 55 Total Protein 7.2 Albumin 4.2 Globulin 3.0 Albumin/Globulin Ratio 1.4 Lipase 32 Urine Color Yellow Urine Clarity Clear Urine pH 6.0 Ur Specific [place] 1.025 Urine Protein 15 H Urine Glucose (UA) Normal Urine Ketones 5 H Urine Occult Blood Negative Urine Nitrite Negative Urine Bilirubin Negative Urine Urobilinogen Normal Ur Leukocyte Esterase Negative Urine RBC 0 SEEN Urine WBC 0-5 SEEN Ur Squamous Epith Cells 0-5 SEEN Urine Bacteria 0 SEEN Urine Mucus 1+ Urine Test Negative Discharge Plan Triage Chief Complaint: Nausea/Vomiting/Diarrhea ED Provider: Mihir Trejo Dx/Rx/DC Orders Clinical Impression: Abdominal pain Prescriptions: New dicyclomine 10 mg capsule 10 mg PO TID Qty: 20 0RF ondansetron 4 mg tablet,disintegrating 4 mg PO Q6H PRN (Reason: nausea and vomiting) Qty: 20 0RF No Action medroxyprogesterone [Depo-Provera] 150 mg/mL suspension 150 mg IM [id number] Qty: 1 3RF ondansetron 4 mg tablet,disintegrating 4 mg PO Q8H PRN PRN (Reason: Nausea) Qty: 10 0RF ondansetron 4 mg tablet,disintegrating 4 mg PO Q8H PRN PRN (Reason: Nausea) Qty: 10 0RF lansoprazole [Prevacid] 30 mg capsule,delayed release(DR/EC) 30 mg PO DAILY Qty: 14 0RF Primary Care Provider: Toby Aceves Referrals: Toby Aceves MD [Primary Care Provider] - Activity Restrictions/Additional Instructions: Follow-up with your primary care physician outpatient setting. Return with worsening symptoms or concerns. Take prescriptions as prescribed Print Language: Malawian Disposition Disposition: Home, Self Care
[2024-04-22] MEDS: Dicyclomine 10 MG Capsule 20 MG PO (14:48)
[2024-04-22] MEDS: Ondansetron 4 MG/2 ML Vial IV (14:48)
[2024-04-22 15:08] LABS: Absolute Lymphocyte Count 2.42 X10^3/uL (0.83-4.51); Absolute Neutrophil Count 8.8 X10^3/uL (2.0-7.7); Basophil# 0.06 X10^3/uL; Basophil% 0.5 % (0-1); Eosinophil# 0.04 X10^3/uL; Eosinophils% 0.3 % (0-5); Hemoglobin 13.9 g/dL (12.0-15.0); Lymphocyte # 2.42 X10^3/ul (0.83-4.51); Lymphocyte % 19.8 % (19-41); Mean Corp Hgb Conc 34.8 g/dL (32-36); Mean Corpuscular Hgb 31.5 pg (27.0-32.0); Mean Corpuscular Volume 90.7 fL (81-99); Mean Platelet Vol. 9.8 fl (6.2-12.0); Monocyte# 0.82 X10^3/uL; Monocyte% 6.7 % (0-10); NRBC Flagged by Analyzer 0 % (0-5); Neutrophil # 8.83 X10^3/uL (2.7-7.7); Neutrophil % 72.3 % (47-70); Platelet Count 250 K/mm3 (150-450); RBC Distribution Width CV 11.8 % (11.6-14.6); RBC Distribution Width SD 39.4 fl (35.1-43.9); Red Blood Count 4.41 M/mm3 (4.2-5.4); White Blood Count 12.2 K/mm3 (4.4-11.0)
[2024-04-22 15:26] LABS: ALB/GLOB Ratio 1.4 RATIO (0.9-2.4); AST(SGOT) 11 U/L (15-37); Alanine Aminotransfer ALT/SGPT 18 U/L (13-56); Albumin, Serum 4.2 g/dL (3.2-5.0); Alkaline Phosphatase 55 U/L (45-117); Anion Gap 5 (5-15); BUN 14 mg/dL (7-18); Chloride 113 mmol/L (98-107); Creatinine, Serum 0.93 mg/dL (0.55-1.02); EST Glomerular Filtration Rate 80 mL/min (>60); Est Glom Filt Rate - Afr Amer 96 mL/min (>60); Estimated Creatinine Clearance 96.18 ml/min; Glucose 117 mg/dL (74-106); Lipase 32 U/L (13-75); Potassium 3.7 mmol/L (3.5-5.1); Protein, Total 7.2 g/dL (6.4-8.2); Sodium Level 142 mmol/L (136-145)
[2024-04-22] MEDS: Metoclopramide 10 MG/2 ML Vial IV (15:49)
[2024-04-22 15:59] LABS: Bacteria 0 SEEN /hpf (None Seen); Red Blood Cells-Urine 0 SEEN /hpf (0-5)
[2024-04-22 16:14] LABS: Color, Urine Yellow (Yellow); Glucose, Dipstick Normal (Normal); Ketone-Dipstick 5 mg/dl (Negative); Leukocyte Esterase-Dipstick Negative /ul (Negative); Nitrite-Dipstick Negative (Negative); Occult Blood-Urine Negative /ul (Negative); Protein-Dipstick 15 mg/dl (Negative); Specific Gravity, Urine 1.025 (1.002-1.030); Urine Bilirubin Dipstick Negative (Negative); Urine Clarity Clear (Clear); Urine Urobilinogen Normal (Normal)
[2024-04-22 16:16] LABS: Internal QC Validated? YES +Cl - CLEAR BKGD; Pregnancy, Urine Negative Negative
[2024-04-22 16:27] LABS: Mucous, Urine 1+ /hpf (<or=2+); Squamous Epithelial Cells - UA 0-5 SEEN /hpf (5-10); White Blood Cells 0-5 SEEN /hpf (0-5)
--- NOTE | 2024-04-22 17:16 | ED.RN ---
This nurse attempted to give medication. upon entering into the room patient was not present. staff checked both patient restrooms, waiting room and outside unable to find patient. Call placed to find patient, her mother answers. patient left due to no one doing anything. nurse unable to find saline lock removed in room. patient states she took it out at home. requested patient either return to ER so staff can verifiy saline lock removed or request for police to visit the home. patient states she would come back to the ER. Charge nurse and Doctor updated.
[2024-04-22] MEDS: Ketorolac 15 MG/ML Vial IM (17:47)
[2024-04-22 17:48] VITALS: BP 111/81; PULSE 70; RESP 18; O2SAT 98
[2024-04-22 18:37] VITALS: BP 112/78; PULSE 72; RESP 18; TEMP 36.6; O2SAT 100
== END 2024-04-22 18:38 | disposition home or self-care (01) ==
PROVIDERS: Emergency Provider Emergency Medicine; PCP Family Medicine; Visit Provider Emergency Medicine
DX: R10.9 Unspecified abdominal pain (principal); R11.2 Nausea with vomiting, unspecified
CPT/HCPCS: 80053; 81001; 81025; 83690; 85025; 87631; 96374; 96375; 99284; A4216; J2405